=== PATIENT | male | born 1980 | race American Indian/Alaskan Native ===

== ENCOUNTER 2020-07-25 08:58 | Emergency (ER) | payer SELFPAY ==
[2020-07-25] MEDS ORDERED: dexAMETHasone 20 MG/5 ML VIAL IM ONE (09:14)
[2020-07-25] MEDS ORDERED: ALBUTEROL 2.5 MG/3 ML NEBU IH ONE (09:14)
--- NOTE | 2020-07-25 09:20 | Event Note ---
ED Screening Note Date of service: 07/25/20 Time: 09:19 ED Screening Note: 39-year-old -[place] male presents to the emergency room reporting chest pain for last night, asthma flareup for the last 3 weeks. Patient states he ran out of his inhaler yesterday. Patient reports he has been intubated but from her overdose. Has been hospitalized for asthma. Does not have a primary care provider. No known drug allergies and currently on no meds on a daily basis. He denies any fever no chills no sore throat does admit to shortness of breath chest pain and tightness. He recently stopped smoking cigarettes 4 days ago. Denies any surgeries. This initial assessment/diagnostic orders/clinical plan/treatment(s) is/are subject to change based on patients health status, clinical progression and re- assessment by fellow clinical providers in the ED. Further treatment and workup at subsequent clinical providers discretion. Patient/guardian urged not to elope from the ED as their condition may be serious if not clinically assessed and managed. Initial orders include:
[2020-07-25] MEDS ORDERED: methylPREDNISolone Sod Succinate 125 MG/2 ML INJ IV ONE (09:22)
--- NOTE | 2020-07-25 09:25 | Emergency Department Report ---
ED Chest Pain HPI - General Chief Complaint: Chest Pain Stated Complaint: CHEST PAIN, SOB Time Seen by Provider: 07/25/20 09:19 Source: patient Mode of arrival: Ambulatory Limitations: No Limitations - History of Present Illness Initial Comments: This is a 39-year-old -[place] male who presents to the emergency department with complaint of a 1 day history of some midsternal chest pain, and a 3-week history of shortness of breath that he equates with his asthma. It is associated with some wheezing and a mixed dry and productive cough. The chest pain is currently 4 out of 10 in intensity and he says that he feels it in his back as well. He denies any fever, nausea, vomiting, lower extremity swelling, diaphoresis, abdominal pain. He has not taken anything for his symptoms prior to presentation. He says that he ran out of his albuterol inhaler. He does not have a primary care physician. No recent travel, recent immobility, recent surgery, or any sick contacts at home. He says he stopped smoking cigarettes about 4 or 5 days ago. - Related Data Previous Rx's Medication Instructions Recorded Last Taken Type Albuterol Mdi (or & Nicu Only) 2 puff IH QID PRN #8.5 gram 07/25/20 Unknown Rx [ProAir HFA Inhaler] predniSONE [Deltasone] 20 mg PO BID #8 tab 07/25/20 Unknown Rx Allergies Allergy/AdvReac Type Severity Reaction Status Date / Time No Known Allergies Allergy Verified 07/25/20 09:08 Heart Score - HEART Score History: Slightly suspicious EKG: Normal Age: < 45 Risk factors: 1-2 risk factors Troponin: < normal limit HEART Score: 1 - EKG Read Time Time EKG Completed: : EKG Read Time: 09:25 - Critical Actions Critical Actions: 0-3 pts:0.9-1.7%risk of adverse cardiac event.Candidate for discharge ED Review of Systems ROS: Stated complaint: CHEST PAIN, SOB Other details as noted in HPI Comment: All other systems reviewed and negative Constitutional: denies: chills, fever Eyes: denies: eye pain, vision change ENT: denies: ear pain, throat pain Respiratory: shortness of breath, wheezing. denies: cough Cardiovascular: chest pain. denies: palpitations, edema Gastrointestinal: denies: abdominal pain, nausea, vomiting Genitourinary: denies: dysuria, discharge Musculoskeletal: back pain. denies: arthralgia Skin: denies: rash, lesions Neurological: denies: headache, weakness ED Past Medical Hx - Past Medical History Hx Asthma: Yes - Surgical History Past Surgical History?: No - Social History Smoking Status: Former Smoker Substance Use Type: None - Medications Home Medications: Home Medications Medication Instructions Recorded Confirmed Last Taken Type Albuterol Mdi (or & Nicu Only) 2 puff IH QID PRN #8.5 gram 07/25/20 Unknown Rx [ProAir HFA Inhaler] predniSONE [Deltasone] 20 mg PO BID #8 tab 07/25/20 Unknown Rx ED Physical Exam - General Limitations: No Limitations - Other Other exam information: GENERAL: The patient is well-developed well-nourished. HENT: Normocephalic. Atraumatic. Patient has moist mucous membranes. EYES: Extraocular motions are intact. NECK: Supple. Trachea is midline. CHEST/LUNGS: Moderate wheezing throughout the chest. No tachypnea or accessory muscle use. HEART/CARDIOVASCULAR: Regular. There is no tachycardia. There is no murmur. ABDOMEN: Abdomen is soft, nontender. Patient has normal bowel sounds. There is no abdominal distention. SKIN: Skin is warm and dry. NEURO: The patient is awake, alert, and oriented. The patient is cooperative. The patient has no focal neurologic deficits. Normal speech. MUSCULOSKELETAL: There is no tenderness or deformity. There is no limitation range of motion. ED Course Vital Signs 07/25/20 07/25/20 07/25/20 09:06 09:22 09:30 Pulse Rate 67 71 Pulse Rate [ Anterior Bilateral Throughout] Respiratory 22 Rate Respiratory Rate [Anterior Bilateral Throughout] Blood Pressure 148/93 O2 Sat by Pulse 93 95 94 Oximetry 07/25/20 07/25/20 07/25/20 09:39 09:46 10:00 Pulse Rate 80 71 62 Pulse Rate [ 80 Anterior Bilateral Throughout] Respiratory 13 17 Rate Respiratory 16 Rate [Anterior Bilateral Throughout] Blood Pressure 139/86 144/78 O2 Sat by Pulse 94 100 Oximetry 07/25/20 10:16 Pulse Rate 61 Pulse Rate [ Anterior Bilateral Throughout] Respiratory 12 Rate Respiratory Rate [Anterior Bilateral Throughout] Blood Pressure 130/85 O2 Sat by Pulse 98 Oximetry JHOAN score - Jhoan Score Age > 65: (0) No Aspirin use within the Past 7 Days: (0) No 3 or more CAD Risk Factors: (0) No 2 or more Angina events in past 24 hrs: (0) No Known CAD with more than 50% Stenosis: (0) No Elevated Cardiac Markers: (0) No ST Deviation Greater than 0.5mm: (0) No JHOAN Score: 0 ED Medical Decision Making - Lab Data Result diagrams: 07/25/20 10:00 07/25/20 10:00 Lab Results 07/25/20 07/25/20 Range/Units 10:00 10:00 WBC 6.6 (4.5-11.0) K/mm3 RBC 4.66 (3.65-5.03) M/mm3 Hgb 15.2 (11.8-15.2) gm/dl Hct 44.8 (35.5-45.6) % MCV 96 H (84-94) fl MCH 33 H (28-32) pg MCHC 34 (32-34) % RDW 13.6 (13.2-15.2) % Plt Count 266 (140-440) K/mm3 Lymph % (Auto) 31.4 (13.4-35.0) % Union % (Auto) 7.4 H (0.0-7.3) % Eos % (Auto) 4.9 H (0.0-4.3) % Baso % (Auto) 0.4 (0.0-1.8) % Lymph # (Auto) 2.1 (1.2-5.4) K/mm3 Union # (Auto) 0.5 (0.0-0.8) K/mm3 Eos # (Auto) 0.3 (0.0-0.4) K/mm3 Baso # (Auto) 0.0 (0.0-0.1) K/mm3 Seg Neutrophils % 55.9 (40.0-70.0) % Seg Neutrophils # 3.7 (1.8-7.7) K/mm3 Sodium 137 (137-145) mmol/L Potassium 3.9 (3.6-5.0) mmol/L Chloride 102.7 (98-107) mmol/L Carbon Dioxide 28 (22-30) mmol/L Anion Gap 10 mmol/L BUN 8 L (9-20) mg/dL Creatinine 0.9 (0.8-1.3) mg/dL Estimated GFR > 60 ml/min BUN/Creatinine Ratio 9 % Glucose 88 (75-100) mg/dL Calcium 8.7 (8.4-10.2) mg/dL Troponin T < 0.010 (0.00-0.029) ng/mL - EKG Data -: EKG Interpreted by Me EKG shows normal: sinus rhythm, axis (Left axis deviation), intervals, QRS complexes, ST-T waves Rate: normal - EKG Data When compared to previous EKG there are: previous EKG unavailable Interpretation: other (Sinus rhythm at 66 bpm, left axis deviation. No ST elevation CA.) - Radiology Data Radiology results: image reviewed interpreted by me: Chest x-ray does not show any acute process. There are no pleural effusions, obvious pneumonia and there is no pneumothorax. No significant cardiomegaly. - Medical Decision Making This patient presents to the emergency department with complaint of some shortness of breath, wheezing and coughing over the past 3 weeks and has just now developed some recent generalized chest tightness/discomfort. On examination he has moderate bronchospasm but does not appear in any respiratory or acute distress. EKG did not have any morphology consistent with ST elevation myocardial infarction. Chest x-ray does not show any pneumonia, pleural effusions, pneumothorax, or any other acute process. Patient's labs have been unremarkable including CBC, metabolic panel and a negative troponin. Patient was given an extended breathing treatment and a dose of steroids. Upon reevaluation he appears, and feels, greatly improved. He still has some expiratory wheezing but it is markedly improved. Patient is low on the heart and JHOAN score. Patient does not have any risk factors associated with thromboembolic disease and is low on the Wells score criteria and negative on the pulmonary embolism rule out criteria. For these reasons patient appears safe for discharge home at this time. His contact information has been sent over to the [facility], and someone from their office should be contacting him shortly for close outpatient follow-up as per our hospitals low risk chest pain protocol. Critical Care Time: No Critical care attestation.: If time is entered above; I have spent that time in minutes in the direct care of this critically ill patient, excluding procedure time. ED Disposition Clinical Impression: Bronchospasm, Chest tightness Asthma attack Qualifiers: Asthma severity: unspecified severity Asthma persistence: unspecified Qualified Code(s): J45.901 - Unspecified asthma with (acute) exacerbation Disposition: DC- TO HOME OR SELFCARE Is pt being admited?: No Condition: Stable Instructions: Asthma, Adult, Bronchospasm, Adult, Nonspecific Chest Pain, Adult Additional Instructions: Please follow-up with a primary care physician in the next few days. I am giving you a referral for a local primary care physician and a primary care clinic. I am sending your contact information over to the [facility], and someone from their office should be contacting you shortly for close outpatient follow-up. Please do not go back to smoking cigarettes or smoking of any kind. Return to the emergency department with any worsening of your symptoms, new or concerning symptoms not addressed during this current emergency department visit, or with any acute distress. Prescriptions: predniSONE [Deltasone] 20 mg PO BID #8 tab Albuterol Mdi (or & Nicu Only) [ProAir HFA Inhaler] 2 puff IH QID PRN #8.5 gram PRN Reason: Shortness Of Breath Referrals: KRISTEN TUCKER MD [Staff Physician] - 3-5 Days MARK AMES MD [Staff Physician] - 3-5 Days [facility] [Provider Group] - 3-5 Days Time of Disposition: 11:23
[2020-07-25] MEDS: IPRATROPIUM 0.02% NEBU 2.5 ML IH ONE (09:46)
[2020-07-25 10:25] LABS: Basophils % (Auto) 0.4 % (0.0-1.8); Eosinophils # (Auto) 0.3 K/mm3 (0.0-0.4); Eosinophils % (Auto) 4.9 % (0.0-4.3); Hematocrit 44.8 % (35.5-45.6); Hemoglobin 15.2 gm/dl (11.8-15.2); Lymphocytes # (Auto) 2.1 K/mm3 (1.2-5.4); Lymphocytes % (Auto) 31.4 % (13.4-35.0); Mean Corpuscular HGB Conc 34 % (32-34); Mean Corpuscular Volume 96 fl (84-94); Monocytes # (Auto) 0.5 K/mm3 (0.0-0.8); Monocytes % (Auto) 7.4 % (0.0-7.3); Platelet Count 266 K/mm3 (140-440); Red Blood Count 4.66 M/mm3 (3.65-5.03); Red Cell Distribution Width 13.6 % (13.2-15.2)
[2020-07-25 10:53] LABS: BUN/Creatinine Ratio 9; Blood Urea Nitrogen 8 mg/dL (9-20); Calcium 8.7 mg/dL (8.4-10.2); Hemolysis Index 3
[2020-07-25 12:13] VITALS: BP 139/73
--- NOTE | 2020-07-25 14:11 | XRay Report ---
XR chest 1V ap INDICATION / CLINICAL INFORMATION: Shortness of breath, chest pain COMPARISON: None available. FINDINGS: SUPPORT DEVICES: None. HEART / MEDIASTINUM: No significant abnormality. LUNGS / PLEURA: Lungs are clear. Costophrenic sulci are sharp. No pneumothorax. ADDITIONAL FINDINGS: No significant additional findings. IMPRESSION: 1. No acute findings. Signer Name: Leif Salazar MD Signed: 07/25/2020 9:47 AM Workstation Name: [id number]
--- NOTE | 2020-07-26 09:36 | Electrocardiograph Report ---
[facility] Test Date: 2020-07-25 Test Time: 09:35:08 Pat Name: REJI SHAW Department: Room: Gender: M Patient Navigator: BISHNU : 1980 Requested By: JOHNATHON REYES Order Number: [id number] Reading MD: Gareth Nuñez Measurements Intervals [place] Rate: 66 P: 74 IA: 154 QRS: -31 QRSD: 108 T: 59 QT: 388 QTc: 405 Interpretive Statements Sinus rhythm Left axis deviation No previous ECG available for comparison Electronically Signed On 07-26-2020 9:36:18 EDT by Gareth Nuñez
== END 2020-07-25 12:50 | disposition home or self-care (01) ==
LOC: ED 08:58
DX: J45.909 Unspecified asthma, uncomplicated (principal); Z87.891 Personal history of nicotine dependence; Z79.899 Other long term (current) drug therapy
CPT/HCPCS: 36415; 71045; 80048; 84484; 85025; 93005; 94640; 96374; 99284; J2930; 94644

== ENCOUNTER 2020-08-15 10:29 | Emergency (ER) | payer SELFPAY ==
[2020-08-15] MEDS ORDERED: ALBUTEROL 2.5 MG/3 ML NEBU IH ONE (10:56)
[2020-08-15] MEDS ORDERED: MAGNESIUM SULFATE 2 GM/50 ML BAG IV ONE (10:57)
[2020-08-15] MEDS ORDERED: IPRATROPIUM 0.02% NEBU 2.5 ML IH ONE (10:57)
--- NOTE | 2020-08-15 10:58 | Emergency Department Report ---
Minor Respiratory - HPI Chief Complaint: Dyspnea/Respdistress Stated Complaint: MAIKEL/CP Time Seen by Provider: 08/15/20 10:56 Pain Location: Chest Severity: mild Minor Respiratory: Yes Able to Tolerate Fluids, Yes Cough, Yes Shortness of Breath, No Rhinorrhea, No Sore Throat, No Ear Pain, No Sick Contacts, No Hemoptysis, No Chest Pain, No Fever Other History: Patient is a 39-year-old male that comes to the emergency room with wheezing. He is known to us. He does not follow-up because he states he does not have medical insurance. Patient denies any fever or chills. He denies any purulent cough. Patient has not been immunized for Covid. He has shortness of breath only when wheezing. ED Review of Systems ROS: Stated complaint: MAIKEL/CP Other details as noted in HPI Comment: All other systems reviewed and negative ED Past Medical Hx - Past Medical History Previous Medical History?: Yes Hx Asthma: Yes - Surgical History Past Surgical History?: No - Family History Family history: no significant - Social History Smoking Status: Former Smoker Substance Use Type: None - Medications Home Medications: Home Medications Medication Instructions Recorded Confirmed Last Taken Type ALBUTEROL NEB's [Proventil 0.083% 2.5 mg IH TID PRN #1 box 08/15/20 Unknown Rx NEBS] Albuterol Sulfate [Proair 90 mcg IH QID PRN #1 aer.[email or web address] 08/15/20 Unknown Rx Respiclick] Cetirizine HCl [ZyrTEC] 10 mg PO DAILY #30 capsule 08/15/20 Unknown Rx Fluticasone [Flonase] 1 spray NS QDAY #1 bottle 08/15/20 Unknown Rx predniSONE [Deltasone] 20 mg PO DAILY #5 tablet 08/15/20 Unknown Rx Minor Respiratory Exam - Exam General: Vital signs noted. No distress. Alert and acting appropriately. Mild right testicular swelling on exam no tenderness on palpation no discharge HEENT: Yes Moist Mucous Membranes, No Pharyngeal Erythema, No Pharyngeal Exudates, No Rhinorrhea, No Conjuctival Injection, No Frontal Tenderness, No Maxillary Tenderness Ear: Neither TM Bulge, Neither TM Erythema, Neither EAC Pain, Neither EAC Discharge Neck: Yes Supple, No Adenopathy Lungs: Yes Good Air Exchange, Yes Wheezes, No Ronchi, No Stridor, No Cough, No Labored Respirations, No Retractions, No Use of Accessory Muscles, No Other Abnormal Lung Sounds Heart: Yes Regular, No Murmur Abdomen: Yes Normal Bowel Sounds, No Tenderness, No Peritoneal Signs Skin: No Rash, No Edema Neurologic: Alert and oriented, no deficits. Musculoskeletal: Unremarkable. ED Course Vital Signs 08/15/20 10:39 Temperature 98.3 F Pulse Rate 94 H Respiratory 20 Rate Blood Pressure 142/90 [Right] O2 Sat by Pulse 93 Oximetry ED Medical Decision Making - Radiology Data Radiology results: report reviewed, image reviewed See report - Medical Decision Making X-ray noted. Patient given a DuoNeb by respiratory. Magnesium 2 g. And methylprednisolone. On reexam patient had diminished wheezing. I had a long discussion with patient regarding his lack of compliance and the risk associated with it. I have given him [facility] information as well as good Rx cards. Have also given him additional community referrals. He verbalizes understanding. He understands that he could develop asthma to the point that his airways clamped down and that requires intubation and that can result in even . On discharge patient ambulatory and nontoxic. His saturations on room air are 99 on discharge. Vital Signs 08/15/20 08/15/20 08/15/20 10:39 11:50 11:51 Temperature 98.3 F Pulse Rate 94 H Pulse Rate [ 63 95 H Bilateral Throughout] Respiratory 20 Rate Respiratory 22 22 Rate [Bilateral Throughout] Blood Pressure 142/90 [Right] O2 Sat by Pulse 93 Oximetry 08/15/20 12:20 Temperature Pulse Rate 88 Pulse Rate [ Bilateral Throughout] Respiratory Rate Respiratory Rate [Bilateral Throughout] Blood Pressure 184/104 [Right] O2 Sat by Pulse 99 Oximetry - Differential Diagnosis AE RO PNA Critical care attestation.: If time is entered above; I have spent that time in minutes in the direct care of this critically ill patient, excluding procedure time. ED Disposition Clinical Impression: Asthma, acute, Nonadherence to medical treatment Disposition: DC-01 TO HOME OR SELFCARE Is pt being admited?: No Does the pt Need Aspirin: No Condition: Stable Instructions: Asthma, Adult, Asthma (ED) Additional Instructions: Follow-up as instructed. Have given you numerous referrals below. [facility] is also good if you are underinsured. Stay well-hydrated. Medications as ordered today. Prescriptions: predniSONE [Deltasone] 20 mg PO DAILY #5 tablet Fluticasone [Flonase] 1 spray NS QDAY #1 bottle Albuterol Sulfate [Proair Respiclick] 90 mcg IH QID PRN #1 aer.pow.[email or web address] PRN Reason: Wheezing ALBUTEROL NEB's [Proventil 0.083% NEBS] 2.5 mg IH TID PRN #1 box PRN Reason: Wheezing Cetirizine HCl [ZyrTEC] 10 mg PO DAILY #30 capsule Referrals: [facility] [Outside] - 3-5 Days LYUDMILA JOSE MD [Staff Physician] - 3-5 Days Time of Disposition: 11:23
[2020-08-15] MEDS ORDERED: methylPREDNISolone Sod Succinate 125 MG/2 ML INJ IV ONE (11:02)
--- NOTE | 2020-08-15 11:22 | XRay Report ---
XR chest 1V ap INDICATION / CLINICAL INFORMATION: SOB WHEEZING COMPARISON: 07/25/2020 FINDINGS: SUPPORT DEVICES: None. HEART / MEDIASTINUM: No significant abnormality. LUNGS / PLEURA: Lungs are clear. Costophrenic sulci are sharp. No pneumothorax. ADDITIONAL FINDINGS: No significant additional findings. IMPRESSION: 1. No acute findings. Signer Name: Leif Salazar MD Signed: 08/15/2020 11:17 AM Workstation Name: [employer]
[2020-08-15 12:46] VITALS: BP 184/104
--- NOTE | 2020-08-16 12:04 | Electrocardiograph Report ---
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
== END 2020-08-15 12:20 | disposition home or self-care (01) ==
LOC: ED 10:29
DX: J45.909 Unspecified asthma, uncomplicated (principal); Z91.19 Patient's noncompliance with other medical treatment and regimen; Z87.891 Personal history of nicotine dependence; Z79.899 Other long term (current) drug therapy
CPT/HCPCS: 71045; 93005; 94640; 96365; 96375; 99283; J2930; J3475; 94644

== ENCOUNTER 2020-12-16 05:32 | Emergency (ER) | payer SELFPAY ==
[2020-12-16] MEDS ORDERED: ASPIRIN 325 MG TAB PO ONE (05:41)
[2020-12-16] MEDS ORDERED: IPRATROPIUM/ALBUTEROL SULFATE 3 ML AMPUL.NEB IH ONE (06:06)
[2020-12-16] MEDS ORDERED: methylPREDNISolone Sod Succinate 125 MG/2 ML INJ IM ONE (06:08)
[2020-12-16 07:01] LABS: Basophils # (Auto) 0.1 K/mm3 (0.0-0.1); Basophils % (Auto) 0.8 % (0.0-1.8); Eosinophils # (Auto) 0.6 K/mm3 (0.0-0.4); Eosinophils % (Auto) 6.9 % (0.0-4.3); Hematocrit 48.2 % (35.5-45.6); Lymphocytes # (Auto) 2.8 K/mm3 (1.2-5.4); Mean Corpuscular HGB Conc 33 % (32-34); Mean Corpuscular Volume 96 fl (84-94); Monocytes # (Auto) 0.7 K/mm3 (0.0-0.8); Monocytes % (Auto) 8.7 % (0.0-7.3); Platelet Count 271 K/mm3 (140-440)
[2020-12-16 07:05] LABS: Alanine Aminotransferase 30 units/L (7-56); Albumin 4.2 g/dL (3.9-5); BUN/Creatinine Ratio 7; Blood Urea Nitrogen 6 mg/dL (9-20); Calcium 8.7 mg/dL (8.4-10.2); Hemolysis Index 36
[2020-12-16] MEDS ORDERED: IPRATROPIUM 0.02% NEBU 2.5 ML IH ONE (07:34)
[2020-12-16] MEDS ORDERED: ALBUTEROL 2.5 MG/3 ML NEBU IH ONE (07:34)
--- NOTE | 2020-12-16 07:38 | XRay Report ---
CHEST 2 VIEWS INDICATION / CLINICAL INFORMATION: cp. COMPARISON: None available. FINDINGS: SUPPORT DEVICES: None. HEART / MEDIASTINUM: No significant abnormality. LUNGS / PLEURA: No significant pulmonary or pleural abnormality. No pneumothorax. ADDITIONAL FINDINGS: No significant additional findings. IMPRESSION: 1. No acute findings. Signer Name: Emmanuel Mckeon MD Signed: 12/16/2020 7:33 AM Workstation Name: [id number]
[2020-12-16 09:46] LABS: INR 1.02 (0.87-1.13)
[2020-12-16 09:47] LABS: Partial Thromboplastin Time 53.6 Sec. (24.2-36.6)
--- NOTE | 2020-12-16 10:49 | Emergency Department Report ---
ED Chest Pain HPI - General Chief Complaint: Chest Pain Stated Complaint: CHEST PAIN Time Seen by Provider: 12/16/20 07:27 Source: patient Mode of arrival: Ambulatory Limitations: No Limitations - History of Present Illness Initial Comments: This is a 39-year-old male nontoxic, well nourished in appearance, no acute signs of distress presents to the ED with c/o of chest tightness, SOB and wheezing that started today. Patient chest pains but stated has some tightness. Patient denies any upper respiratory symptoms. Patient denies any hemoptysis, fever, chills, nausea, vomiting, headache, stiff neck, numbness, tingling, abdominal pain. Patient denies pleuritic chest pain. Patient denies any recent travels or long car rides. Patient denies any recent surgeries or any sick contacts. Patient denies any drug allergies. Past medical history includes Asthma. MD Complaint: other (chest tightness, wheezing/SOB) -: days(s) Pain Radiation: none Severity: mild Consistency: constant Improves With: nothing Worsens With: nothing re: denies: nausea, vomting, diaphoresis, dyspnea, sense of impending doom Other Symptoms: denies: cough, fever, syncope, rash, acid taste in mouth, leg swelling, palpitations, burping Treatments Prior to Arrival: none Aspirin use within the Past 7 Days: (0) No - Related Data Previous Rx's Medication Instructions Recorded Last Taken Type ALBUTEROL NEB's [Proventil 0.083% 2.5 mg IH TID PRN #1 box 08/15/20 Unknown Rx NEBS] Albuterol Sulfate [Proair 90 mcg IH QID PRN #1 aer.pow.ba 08/15/20 Unknown Rx Respiclick] Cetirizine HCl [ZyrTEC] 10 mg PO DAILY #30 capsule 08/15/20 Unknown Rx Fluticasone [Flonase] 1 spray NS QDAY #1 bottle 08/15/20 Unknown Rx predniSONE [Deltasone] 20 mg PO DAILY #5 tablet 08/15/20 Unknown Rx Albuterol Mdi (or & Nicu Only) 2 puff IH QID PRN #8.5 gram 12/16/20 Unknown Rx [ProAir HFA Inhaler] Albuterol Sulfate [Albuterol 0.63% 0.63 mg IH TID PRN #1 box 12/16/20 Unknown Rx NEBS] Prednisone [predniSONE 10 mg 10 mg PO .TAPER #1 tab.ds.pk 12/16/20 Unknown Rx (6-Day Pack, 21 Tabs)] Allergies Allergy/AdvReac Type Severity Reaction Status Date / Time No Known Allergies Allergy Verified 07/25/20 09:08 Heart Score - HEART Score History: Slightly suspicious EKG: Normal Age: < 45 Risk factors: No known risk factors Troponin: < normal limit HEART Score: 0 - EKG Read Time Time EKG Completed: 06:00 EKG Read Time: 06:11 (Dr. Vargas) - Critical Actions Critical Actions: 0-3 pts:0.9-1.7%risk of adverse cardiac event.Candidate for discharge ED Review of Systems ROS: Stated complaint: CHEST PAIN Other details as noted in HPI Constitutional: denies: chills, fever Eyes: denies: eye pain, eye discharge, vision change ENT: denies: ear pain, throat pain Respiratory: shortness of breath, wheezing. denies: cough Cardiovascular: denies: chest pain, palpitations, dyspnea on exertion, orthopnea, edema, syncope, paroxysmal nocturnal dyspnea Endocrine: no symptoms reported Gastrointestinal: denies: abdominal pain, nausea, diarrhea Genitourinary: denies: urgency, dysuria Musculoskeletal: denies: back pain, joint swelling, arthralgia Skin: denies: rash, lesions Neurological: denies: headache, weakness, paresthesias Psychiatric: denies: anxiety, depression Hematological/Lymphatic: denies: easy bleeding, easy bruising ED Past Medical Hx - Past Medical History Previous Medical History?: Yes Hx Asthma: Yes - Surgical History Past Surgical History?: No - Social History Smoking Status: Former Smoker Substance Use Type: None - Medications Home Medications: Home Medications Medication Instructions Recorded Confirmed Last Taken Type ALBUTEROL NEB's [Proventil 0.083% 2.5 mg IH TID PRN #1 box 08/15/20 Unknown Rx NEBS] Albuterol Sulfate [Proair 90 mcg IH QID PRN #1 aer.pow.ba 08/15/20 Unknown Rx Respiclick] Cetirizine HCl [ZyrTEC] 10 mg PO DAILY #30 capsule 08/15/20 Unknown Rx Fluticasone [Flonase] 1 spray NS QDAY #1 bottle 08/15/20 Unknown Rx predniSONE [Deltasone] 20 mg PO DAILY #5 tablet 08/15/20 Unknown Rx Albuterol Mdi (or & Nicu Only) 2 puff IH QID PRN #8.5 gram 12/16/20 Unknown Rx [ProAir HFA Inhaler] Albuterol Sulfate [Albuterol 0.63% 0.63 mg IH TID PRN #1 box 12/16/20 Unknown Rx NEBS] Prednisone [predniSONE 10 mg 10 mg PO .TAPER #1 tab.ds.pk 12/16/20 Unknown Rx (6-Day Pack, 21 Tabs)] ED Physical Exam - General Limitations: No Limitations General appearance: alert, in no apparent distress - Head Head exam: Present: atraumatic, normocephalic - Eye Eye exam: Present: normal appearance - Neck Neck exam: Present: normal inspection, full ROM. Absent: lymphadenopathy - Respiratory Respiratory exam: Present: wheezes (bilateral expiratory wheezing). Absent: respiratory distress, rales, rhonchi, stridor, chest wall tenderness, accessory muscle use, decreased breath sounds, prolonged expiratory - Cardiovascular Cardiovascular Exam: Present: regular rate, normal rhythm, normal heart sounds. Absent: bradycardia, tachycardia, irregular rhythm, systolic murmur, diastolic murmur, rubs, gallop - GI/Abdominal GI/Abdominal exam: Present: soft, normal bowel sounds. Absent: distended, tende rness, guarding, rebound, rigid, diminished bowel sounds - Extremities Exam Extremities exam: Present: normal inspection, full ROM - Back Exam Back exam: Present: normal inspection, full ROM. Absent: tenderness, CVA tende rness (R), CVA tenderness (L), muscle spasm, paraspinal tenderness, vertebral tenderness, rash noted - Neurological Exam Neurological exam: Present: alert, oriented X3, normal gait - Psychiatric Psychiatric exam: Present: normal affect, normal mood - Skin Skin exam: Present: warm, dry, intact, normal color. Absent: rash ED Course Vital Signs 12/16/20 12/16/20 12/16/20 05:39 10:26 11:22 Temperature 98.0 F Pulse Rate 70 85 85 Respiratory 19 18 18 Rate Blood Pressure 135/93 135/65 130/85 [Right] O2 Sat by Pulse 94 95 96 Oximetry - Reevaluation(s) Reevaluation #1: 12/16/20 10:49 Patient is speaking in full sentences with no signs of distress noted. Reevaluation #2: 12/16/20 10:49 Posttreatment and there is no wheezing upon auscultation. ROBERT score - Robert Score Age > 65: (0) No Aspirin use within the Past 7 Days: (0) No 3 or more CAD Risk Factors: (0) No 2 or more Angina events in past 24 hrs: (0) No Known CAD with more than 50% Stenosis: (0) No Elevated Cardiac Markers: (0) No ST Deviation Greater than 0.5mm: (0) No ROBERT Score: 0 ED Medical Decision Making - Lab Data Result diagrams: 12/16/20 06:33 12/16/20 06:33 Lab Results 12/16/20 12/16/20 12/16/20 Range/Units 06:33 06:33 07:45 WBC 8.1 (4.5-11.0) K/mm3 RBC 5.00 (3.65-5.03) M/mm3 Hgb 16.0 H (11.8-15.2) gm/dl Hct 48.2 H (35.5-45.6) % MCV 96 H (84-94) fl MCH 32 (28-32) pg MCHC 33 (32-34) % RDW 14.0 (13.2-15.2) % Plt Count 271 (140-440) K/mm3 Lymph % (Auto) 35.0 (13.4-35.0) % [place] % (Auto) 8.7 H (0.0-7.3) % Eos % (Auto) 6.9 H (0.0-4.3) % Baso % (Auto) 0.8 (0.0-1.8) % Lymph # (Auto) 2.8 (1.2-5.4) K/mm3 [place] # (Auto) 0.7 (0.0-0.8) K/mm3 Eos # (Auto) 0.6 H (0.0-0.4) K/mm3 Baso # (Auto) 0.1 (0.0-0.1) K/mm3 Seg Neutrophils % 48.6 (40.0-70.0) % Seg Neutrophils # 3.9 (1.8-7.7) K/mm3 PT 13.9 (12.2-14.9) Sec. INR 1.02 (0.87-1.13) APTT 53.6 H (24.2-36.6) Sec. Sodium 138 (137-145) mmol/L Potassium 4.3 (3.6-5.0) mmol/L Chloride 104.1 (98-107) mmol/L Carbon Dioxide 25 (22-30) mmol/L Anion Gap 13 mmol/L BUN 6 L (9-20) mg/dL Creatinine 0.9 (0.8-1.3) mg/dL Estimated GFR > 60 ml/min BUN/Creatinine Ratio 7 % Glucose 109 H (75-100) mg/dL Calcium 8.7 (8.4-10.2) mg/dL Magnesium (1.7-2.3) mg/dL Total Bilirubin 0.40 (0.1-1.2) mg/dL AST 22 (5-40) units/L ALT 30 (7-56) units/L Alkaline Phosphatase 64 (35-129) units/L Troponin T < 0.010 (0.00-0.029) ng/mL Total Protein 7.3 (6.3-8.2) g/dL Albumin 4.2 (3.9-5) g/dL Albumin/Globulin Ratio 1.4 % 12/16/20 12/16/20 Range/Units 07:45 09:59 WBC (4.5-11.0) K/mm3 RBC (3.65-5.03) M/mm3 Hgb (11.8-15.2) gm/dl Hct (35.5-45.6) % MCV (84-94) fl MCH (28-32) pg MCHC (32-34) % RDW (13.2-15.2) % Plt Count (140-440) K/mm3 Lymph % (Auto) (13.4-35.0) % [place] % (Auto) (0.0-7.3) % Eos % (Auto) (0.0-4.3) % Baso % (Auto) (0.0-1.8) % Lymph # (Auto) (1.2-5.4) K/mm3 [place] # (Auto) (0.0-0.8) K/mm3 Eos # (Auto) (0.0-0.4) K/mm3 Baso # (Auto) (0.0-0.1) K/mm3 Seg Neutrophils % (40.0-70.0) % Seg Neutrophils # (1.8-7.7) K/mm3 PT (12.2-14.9) Sec. INR (0.87-1.13) APTT (24.2-36.6) Sec. Sodium (137-145) mmol/L Potassium (3.6-5.0) mmol/L Chloride (98-107) mmol/L Carbon Dioxide (22-30) mmol/L Anion Gap mmol/L BUN (9-20) mg/dL Creatinine (0.8-1.3) mg/dL Estimated GFR ml/min BUN/Creatinine Ratio % Glucose (75-100) mg/dL Calcium (8.4-10.2) mg/dL Magnesium 2.10 (1.7-2.3) mg/dL Total Bilirubin (0.1-1.2) mg/dL AST (5-40) units/L ALT (7-56) units/L Alkaline Phosphatase (35-129) units/L Troponin T < 0.010 (0.00-0.029) ng/mL Total Protein (6.3-8.2) g/dL Albumin (3.9-5) g/dL Albumin/Globulin Ratio % - EKG Data 12/16/20 10:49 Normal sinus rhythm at 60 bpm. No STEMI. Reviewed and signed by . - Radiology Data [facility] [address] [place] [address] XRay Report Signed Patient: REJI SHAW MR#: [id number] : 1980 Acct:[id number] Age/Sex: 39 / M ADM Date: 12/16/20 Loc: ED Attending Dr: Ordering Physician: JOSIE VARGAS MD Date of Service: 12/16/20 Procedure(s): XR chest routine 2V Accession Number(s): [id number] cc: CARMELO VARGAS MD Fluoro Time In Minutes: CHEST 2 VIEWS INDICATION / CLINICAL INFORMATION: cp. COMPARISON: None available. FINDINGS: SUPPORT DEVICES: None. HEART / MEDIASTINUM: No significant abnormality. LUNGS / PLEURA: No significant pulmonary or pleural abnormality. No pneumothorax. ADDITIONAL FINDINGS: No significant additional findings. IMPRESSION: 1. No acute findings. Signer Name: Emmanuel Mckeon MD Signed: 12/16/2020 7:33 AM Workstation Name: [id number] Transcribed By: LIVE Dictated By: STEPHANIE MCKEON MD Electronically Authenticated By: STEPHANIE MCKEON MD Signed Date/Time: 12/16/20732 DD/ 2 TD/TT: - Medical Decision Making This is a 39-year-old male that presents with asthma excerbation. Patient is stable and was examined by me. ROBERT and HEART score 0 pints. PERC score for DVT/SVT/PE 0 points. EKG normal sinus rhythm with no significant changes in ST. Chest xray dictated by the radiologist. PAtient is notified of the Xray report with no questions noted. Labs within normal limits. Negative troponin x2. Pat ient received treatment in the ED which stated symptoms are improving subsided. Posttreatment and there is no wheezing upon auscultation. Patient is discharged with albuterol and prednisone. Patient was instructed to Follow-up with a primary care/studio hand doctor in 2 days or if symptoms worsen and continue return to emergency room as soon as possible. At time of discharge, the patient does not seem toxic or ill in appearance. No acute signs of distress noted. Patient agrees to discharge treatment plan of care. No further questions noted by the patient. This chart is dictated with using [employer] Critical care attestation.: If time is entered above; I have spent that time in minutes in the direct care of this critically ill patient, excluding procedure time. ED Disposition Clinical Impression: Chest pain, unspecified Qualifiers: Chest pain type: unspecified Qualified Code(s): R07.9 - Chest pain, unspecified Asthma exacerbation Qualifiers: Asthma severity: mild Asthma persistence: intermittent Qualified Code(s): J45.21 - Mild intermittent asthma with (acute) exacerbation Disposition: 01 HOME / SELF CARE / HOMELESS Is pt being admited?: No Does the pt Need Aspirin: No Condition: Stable Instructions: Asthma, Adult, Nonspecific Chest Pain, Adult Additional Instructions: Follow-up with a primary care/studio hand doctor in 2 days or if symptoms worsen and continue return to emergency room as soon as possible. Prescriptions: Albuterol Sulfate [Albuterol 0.63% NEBS] 0.63 mg IH TID PRN #1 box PRN Reason: Wheezing Prednisone [predniSONE 10 mg (6-Day Pack, 21 Tabs)] 10 mg PO .TAPER #1 tab.ds.pk Albuterol Mdi (or & Nicu Only) [ProAir HFA Inhaler] 2 puff IH QID PRN #8.5 gram PRN Reason: Shortness Of Breath Referrals: PRIMARY CAREMD [Primary Care Provider] - 3-5 Days LYUDMILA JOSE MD [Staff Physician] - 3-5 Days Forms: Work/School Release Form(ED) Time of Disposition: 11:16
[2020-12-16 11:23] VITALS: BP 130/85
--- NOTE | 2020-12-17 09:46 | Electrocardiograph Report ---
[facility] Test Date: 2020-12-16 Test Time: 06:00:03 Pat Name: REJI SHAW Department: Room: Gender: M [employer]: HILARIO : 1980 Requested By: JOSIE VARGAS Order Number: [id number] Reading MD: Gareth Nuñez Measurements Intervals [place] Rate: 60 P: 74 NC: 169 QRS: -41 QRSD: 107 T: 55 QT: 399 QTc: 399 Interpretive Statements Sinus rhythm Left axis deviation ST elevation, consider inferior injury Compared to ECG 08/15/2020 10:47:51 Left-axis deviation now present ST (T wave) deviation now present Myocardial infarct finding now present Electronically Signed On 12-17-2020 9:45:57 EDT by Gareth Nuñez
== END 2020-12-16 11:24 | disposition home or self-care (01) ==
LOC: ED 05:32
DX: J45.901 Unspecified asthma with (acute) exacerbation (principal); Z87.891 Personal history of nicotine dependence; Z79.899 Other long term (current) drug therapy
CPT/HCPCS: 36415; 71046; 80053; 83735; 84484; 85025; 85610; 85730; 93005; 94640; 96372; 99284; J2930; 94644

== ENCOUNTER 2020-12-21 05:39 | Observation (INO) | payer SELFPAY ==
--- NOTE | 2020-12-21 05:49 | Event Note ---
ED Screening Note Date of service: 12/21/20 Time: 05:47 ED Screening Note: Patient is a 40-year-old male presents emergency room with EMS for shortness of breath and status asthmaticus. Patient presented with EMS on BiPAP. Patient was diaphoretic and increased work of breathing respiratory distress and hypoxic and the patient was placed on BiPAP and given multiple medications the patient respiratory status improved. Patient was given Solu-Medrol, epi, mag, albuterol. I examined the patient. Patient not in respiratory distress. Patient has wheezing throughout. Patient is currently on BiPAP. Patient CV exam shows a normal S1-S2. Patient abdominal exam is negative. Patient is oriented x3. This initial assessment/diagnostic orders/clinical plan/treatment(s) is/are subject to change based on patients health status, clinical progression and re- assessment by fellow clinical providers in the ED. Further treatment and workup at subsequent clinical providers discretion. Patient/guardian urged not to elope from the ED as their condition may be serious if not clinically assessed and managed. Initial orders include: CBC, chemistry, chest x-ray,
[2020-12-21] MEDS ORDERED: IPRATROPIUM/ALBUTEROL SULFATE 3 ML AMPUL.NEB IH ONE ×2 (05:50)
[2020-12-21 06:17] LABS: Basophils # (Auto) 0.1 K/mm3 (0.0-0.1); Basophils % (Auto) 0.6 % (0.0-1.8); Eosinophils # (Auto) 0.2 K/mm3 (0.0-0.4); Eosinophils % (Auto) 2.2 % (0.0-4.3); Hematocrit 45.3 % (35.5-45.6); Hemoglobin 15.2 gm/dl (11.8-15.2); Lymphocytes # (Auto) 1.7 K/mm3 (1.2-5.4); Lymphocytes % (Auto) 16.8 % (13.4-35.0); Mean Corpuscular HGB Conc 34 % (32-34); Mean Corpuscular Volume 96 fl (84-94); Monocytes # (Auto) 0.5 K/mm3 (0.0-0.8); Platelet Count 299 K/mm3 (140-440); Red Blood Count 4.72 M/mm3 (3.65-5.03)
[2020-12-21] MEDS ORDERED: ALBUTEROL 2.5 MG/3 ML NEBU IH ONE ×2 (06:18→06:19)
[2020-12-21] MEDS ORDERED: IPRATROPIUM 0.02% NEBU 2.5 ML IH ONE ×2 (06:18→06:19)
--- NOTE | 2020-12-21 06:30 | XRay Report ---
CHEST 1 VIEW 12/21/2020 5:19 AM INDICATION / CLINICAL INFORMATION: Dyspnea. COMPARISON: None available. FINDINGS: SUPPORT DEVICES: None. HEART / MEDIASTINUM: No significant abnormality. LUNGS / PLEURA: No significant pulmonary or pleural abnormality. No pneumothorax. ADDITIONAL FINDINGS: No significant additional findings. IMPRESSION: 1. No acute findings. Signer Name: Emmanuel Mckeon MD Signed: 12/21/2020 6:25 AM Workstation Name: [id number]
[2020-12-21 06:41] LABS: Alanine Aminotransferase 18 units/L (7-56); Albumin 4.2 g/dL (3.9-5); BUN/Creatinine Ratio 10; Blood Urea Nitrogen 9 mg/dL (9-20); Calcium 8.6 mg/dL (8.4-10.2); Hemolysis Index 4
--- NOTE | 2020-12-21 06:47 | Emergency Department Report ---
ED Shortness of Breath HPI - General Chief Complaint: Dyspnea/Respdistress Stated Complaint: RESP DISTRESS Time Seen by Provider: 12/21/20 06:04 Source: EMS Mode of arrival: Stretcher Limitations: No Limitations - History of Present Illness Initial Comments: 40-year-old male with a past medical history of asthma with history of 1 intubation presents to the hospital complaints of wheezing shortness of breath x1 day. Patient took 7 home nebulizer treatments without improvement. Patient was found to be hypoxic with a room air saturation 88% upon EMS arrival. He was treated with CPAP, supplemental oxygen, albuterol, IV magnesium, and IV Solu-Medrol with some improvement. Patient reports he is feeling better however, has persistent wheezing and therefore was placed on BiPAP upon ED arrival. Patient was here December 16 and treated for acute asthma exacerbation. Patient has not yet filled his prescribed prednisone prescription. He was planning on refilling it today. Patient denies cough, fever, and has not been immunized for Covid. Patient complains of chest tightness secondary to wheezing. No pleuritic pain reported. - Related Data Previous Rx's Medication Instructions Recorded Last Taken Type ALBUTEROL NEB's [Proventil 0.083% 2.5 mg IH TID PRN #1 box 08/15/20 Unknown Rx NEBS] Albuterol Sulfate [Proair 90 mcg IH QID PRN #1 aer.pow.ba 08/15/20 Unknown Rx Respiclick] Cetirizine HCl [ZyrTEC] 10 mg PO DAILY #30 capsule 08/15/20 Unknown Rx Fluticasone [Flonase] 1 spray NS QDAY #1 bottle 08/15/20 Unknown Rx predniSONE [Deltasone] 20 mg PO DAILY #5 tablet 08/15/20 Unknown Rx Albuterol Mdi (or & Nicu Only) 2 puff IH QID PRN #8.5 gram 12/16/20 Unknown Rx [ProAir HFA Inhaler] Albuterol Sulfate [Albuterol 0.63% 0.63 mg IH TID PRN #1 box 12/16/20 Unknown Rx NEBS] Prednisone [predniSONE 10 mg 10 mg PO .TAPER #1 tab.ds.pk 12/16/20 Unknown Rx (6-Day Pack, 21 Tabs)] Allergies Allergy/AdvReac Type Severity Reaction Status Date / Time No Known Allergies Allergy Verified 12/21/20 05:54 ED Review of Systems ROS: Stated complaint: RESP DISTRESS Other details as noted in HPI Comment: All other systems reviewed and negative ED Past Medical Hx - Past Medical History Hx Asthma: Yes - Social History Smoking Status: Former Smoker Substance Use Type: None - Medications Home Medications: Home Medications Medication Instructions Recorded Confirmed Last Taken Type ALBUTEROL NEB's [Proventil 0.083% 2.5 mg IH TID PRN #1 box 08/15/20 Unknown Rx NEBS] Albuterol Sulfate [Proair 90 mcg IH QID PRN #1 aer.pow.ba 08/15/20 Unknown Rx Respiclick] Cetirizine HCl [ZyrTEC] 10 mg PO DAILY #30 capsule 08/15/20 Unknown Rx Fluticasone [Flonase] 1 spray NS QDAY #1 bottle 08/15/20 Unknown Rx predniSONE [Deltasone] 20 mg PO DAILY #5 tablet 08/15/20 Unknown Rx Albuterol Mdi (or & Nicu Only) 2 puff IH QID PRN #8.5 gram 12/16/20 Unknown Rx [ProAir HFA Inhaler] Albuterol Sulfate [Albuterol 0.63% 0.63 mg IH TID PRN #1 box 12/16/20 Unknown R x NEBS] Prednisone [predniSONE 10 mg 10 mg PO .TAPER #1 tab.ds.pk 12/16/20 Unknown Rx (6-Day Pack, 21 Tabs)] ED Physical Exam - General Limitations: No Limitations - Other Other exam information: General: No acute distress Head: Atraumatic Eyes: normal appearance ENT: Moist mucous membranes Neck: Normal appearance, no midline tenderness Chest: Currently on BiPAP, bilateral expiratory wheezing, no accessory muscle use CV: Regular rate and rhythm Abdomen: Soft, normal bowel sounds, nontender, nondistended, no rebound or guarding Back: Normal inspection Extremity: Normal inspection, full range of motion, no calf tenderness or leg edema Neuro: Alert O x 3, no facial asymmetry, speech clear, no gross motor sensory deficit Psych: Appropriate behavior Skin: No rash ED Course Vital Signs 12/21/20 12/21/20 12/21/20 03:44 03:46 05:55 Temperature Pulse Rate 91 H Respiratory 116 H 101 H 23 Rate Blood Pressure 151/83 Blood Pressure [Right] O2 Sat by Pulse 67 L 64 L 100 Oximetry 12/21/20 12/21/20 12/21/20 05:57 06:00 06:01 Temperature 98.1 F Pulse Rate 84 92 H Respiratory 20 21 Rate Blood Pressure Blood Pressure 151/83 [Right] O2 Sat by Pulse 100 99 98 Oximetry 12/21/20 12/21/20 12/21/20 06:16 06:30 06:46 Temperature Pulse Rate 90 83 95 H Respiratory 14 19 15 Rate Blood Pressure 128/79 138/80 140/75 Blood Pressure [Right] O2 Sat by Pulse 98 98 98 Oximetry 12/21/20 12/21/20 07:33 07:36 Temperature 97.7 F Pulse Rate 74 Respiratory 16 Rate Blood Pressure Blood Pressure 118/71 [Right] O2 Sat by Pulse 98 Oximetry ED Medical Decision Making - Lab Data Result diagrams: 12/21/20 06:01 12/21/20 06:01 Lab Results 12/21/20 12/21/20 Range/Units 06:01 06:01 WBC 10.1 (4.5-11.0) K/mm3 RBC 4.72 (3.65-5.03) M/mm3 Hgb 15.2 (11.8-15.2) gm/dl Hct 45.3 (35.5-45.6) % MCV 96 H (84-94) fl MCH 32 (28-32) pg MCHC 34 (32-34) % RDW 14.0 (13.2-15.2) % Plt Count 299 (140-440) K/mm3 Lymph % (Auto) 16.8 (13.4-35.0) % [place] % (Auto) 5.0 (0.0-7.3) % Eos % (Auto) 2.2 (0.0-4.3) % Baso % (Auto) 0.6 (0.0-1.8) % Lymph # (Auto) 1.7 (1.2-5.4) K/mm3 [place] # (Auto) 0.5 (0.0-0.8) K/mm3 Eos # (Auto) 0.2 (0.0-0.4) K/mm3 Baso # (Auto) 0.1 (0.0-0.1) K/mm3 Seg Neutrophils % 75.4 H (40.0-70.0) % Seg Neutrophils # 7.6 (1.8-7.7) K/mm3 Sodium 141 (137-145) mmol/L Potassium 4.3 (3.6-5.0) mmol/L Chloride 106.8 (98-107) mmol/L Carbon Dioxide 29 (22-30) mmol/L Anion Gap 10 mmol/L BUN 9 (9-20) mg/dL Creatinine 0.9 (0.8-1.3) mg/dL Estimated GFR > 60 ml/min BUN/Creatinine Ratio 10 % Glucose 110 H (75-100) mg/dL Calcium 8.6 (8.4-10.2) mg/dL Total Bilirubin 1.10 (0.1-1.2) mg/dL AST 15 (5-40) units/L ALT 18 (7-56) units/L Alkaline Phosphatase 64 (35-129) units/L Total Protein 7.3 (6.3-8.2) g/dL Albumin 4.2 (3.9-5) g/dL Albumin/Globulin Ratio 1.4 % - EKG Data -: EKG Interpreted by Nc EKG shows normal: sinus rhythm, ST-T waves (No STEMI) Rate: normal (98) - Radiology Data Radiology results: report reviewed CHEST 1 VIEW 12/21/2020 5:19 AM INDICATION / CLINICAL INFORMATION: Dyspnea. COMPARISON: None available. FINDINGS: SUPPORT DEVICES: None. HEART / MEDIASTINUM: No significant abnormality. LUNGS / PLEURA: No significant pulmonary or pleural abnormality. No pneumothorax. ADDITIONAL FINDINGS: No significant additional findings. IMPRESSION: 1. No acute findings. - Medical Decision Making 40-year-old male presents to the hospital status asthmaticus with hypoxia requi ring BiPAP support and supplemental oxygenation. Patient required hour continuous nebs in addition to BiPAP support. No infiltrate on x-ray. Labs unremarkable. Patient requires admission to the hospital for status asthmaticus Critical Care Time: Yes Critical care time in (mins) excluding proc time.: 35 Critical care attestation.: If time is entered above; I have spent that time in minutes in the direct care of this critically ill patient, excluding procedure time. ED Disposition Clinical Impression: Acute asthma exacerbation, Respiratory failure, Status asthmaticus Disposition: 07 LEFT AGAINST MEDICAL ADVICE Is pt being admited?: Yes Condition: Stable Time of Disposition: 08:13 (Dr Escobar/hosptialist)
[2020-12-21 07:34] VITALS: BP 118/71
[2020-12-21] MEDS ORDERED: BUDESONIDE 0.5 MG/2 ML NEBU IH SCH (08:45)
--- NOTE | 2020-12-21 08:53 | History and Physical Report ---
<BJ MORIN - Last Filed: 12/21/20 16:22> History of Present Illness Date of examination: 12/21/20 Date of admission: 12/21/20 Chief complaint: SOB and wheezing History of present illness: This is a 40-year-old AA male with a past medical history of asthma, tobacco use, and prior intubation presenting in the ED with complaints of wheezing and shortness of breath x1 day. Per Patient he recently came to the ED on 12/16/2020 for acute asthma exacerbation was discharge with some prescriptions but was unable to get them filled due to financial issues. Patient went on to report that he has a history of intubation from 5 years ago due overdose. Per patient he has been asthmatic all his life, it has been well controlled until yesterday when he got home from work, he took 7 home nebulizer treatments with no improvement. EMS was called, Patient was found diaphoretic with increased work of breathing, hypoxic SPO2 at 88% on RA, patient was placed on CPAP and treated with supplemental oxygen, albuterol, IV magnesium, and IV Solu-Medrol with some improvement then transported to [facility] for further evaluation and care. Upon his arrival to the ED patient was still wheezing and therefore was placed on Bipap and received Solu-Medrol, epi, mag, albuterol. Hospital medicine was contacted for care management. Patient seen and evaluated in the emergency department. Patient is fully Alert and oriented, On the Bipap, SPO2 at 100%, wheezing was a uscultated throughout his lung but no signs of any acute distress noted. Patient denies any chest pain, cough, fever, nor chills. Patient stated that he recently quit smoking and denied any alcohol abuse. As of noted, patient is unvaccinated for COVID and stated that he is not interested in receiving the vaccine at this time. Labs and imaging studies reviewed. Patient is being admitted for ERIKA to Med/Surg/Tele for further management. Past History Past Medical History: other (Asthma) Past Surgical History: No surgical history Social history: lives with family, smoking (Per Patient recently quit), full code. denies: IV drug use Family history: no significant family history Medications and Allergies Allergies Allergy/AdvReac Type Severity Reaction Status Date / Time No Known Allergies Allergy Verified 12/21/20 05:54 Home Medications Medication Instructions Recorded Confirmed Last Taken Type ALBUTEROL NEB's [Proventil 0.083% 2.5 mg IH TID PRN #1 box 08/15/20 Unknown Rx NEBS] Albuterol Sulfate [Proair 90 mcg IH QID PRN #1 aer.pow.ba 08/15/20 Unknown Rx Respiclick] Cetirizine HCl [ZyrTEC] 10 mg PO DAILY #30 capsule 08/15/20 Unknown Rx Fluticasone [Flonase] 1 spray NS QDAY #1 bottle 08/15/20 Unknown Rx predniSONE [Deltasone] 20 mg PO DAILY #5 tablet 08/15/20 Unknown Rx Albuterol Mdi (or & Nicu Only) 2 puff IH QID PRN #8.5 gram 12/16/20 Unknown Rx [ProAir HFA Inhaler] Albuterol Sulfate [Albuterol 0.63% 0.63 mg IH TID PRN #1 box 12/16/20 Unknown Rx NEBS] Prednisone [predniSONE 10 mg 10 mg PO .TAPER #1 tab.ds.pk 12/16/20 Unknown Rx (6-Day Pack, 21 Tabs)] Active Meds: Active Medications Acetaminophen (Acetaminophen 325 Mg Tab) 650 mg PO Q4H PRN PRN Reason: Pain MILD(1-3)/Fever >100.5/TURNER Albuterol (Albuterol 2.5 Mg/3 Ml Nebu) 2.5 mg IH Q4HRT PRN PRN Reason: Shortness Of Breath Albuterol/Ipratropium (Ipratropium/Albuterol Sulfate 3 Ml Ampul.Neb) 1 ampul IH Q6HRT LISA Budesonide (Budesonide 0.5 Mg/2 Ml Nebu) 0.5 mg IH Q12HRT LISA Heparin Sodium (Porcine) (Heparin 5,000 Unit/1 Ml Vial) 5,000 unit SUB-Q Q8HR LISA Magnesium Sulfate (Magnesium Sulfate 2gm/50ml) 2 gm in 50 mls @ 25 mls/hr IV ONCE ONE Stop: 12/21/20 10:47 Methylprednisolone Sodium Succinate (Methylprednisolone Sod Succinate 125 Mg/2 Ml Inj) 60 mg IV Q8HR LISA Naloxone HCl (Naloxone 0.4 Mg/1 Ml Inj) 0.1 mg IV Q2MIN PRN PRN Reason: Res Rate </= 8 or 02 SAT < 92% Ondansetron HCl (Ondansetron 4 Mg/2 Ml Inj) 4 mg IV Q8H PRN PRN Reason: Nausea And Vomiting Oxycodone/Acetaminophen (Oxycodone /Acetaminophen 5-325mg Tab) 1 tab PO Q6H PRN PRN Reason: Pain, Moderate (4-6) Sodium Chloride (Sodium Chloride 0.9% 10 Ml Flush Syringe) 10 ml IV BID LISA Sodium Chloride (Sodium Chloride 0.9% 10 Ml Flush Syringe) 10 ml IV PRN PRN PRN Reason: LINE FLUSH Review of Systems All systems: negative Constitutional: no weight loss, no fever, no chills Cardiovascular: shortness of breath, no chest pain Respiratory: shortness of breath, wheezing, no cough Gastrointestinal: no nausea, no vomiting Exam - Constitutional Vitals: Temp Pulse Resp BP Pulse Ox 97.7 F 74 16 118/71 98 12/21/20 07:36 12/21/20 07:33 12/21/20 07:33 12/21/20 07:33 12/21/20 07:33 General appearance: Present: no acute distress, obese - EENT Eyes: Present: PERRL, EOM intact ENT: hearing intact - Neck Neck: Present: supple, normal ROM - Respiratory Respiratory effort: normal Respiratory: bilateral: wheezing - Cardiovascular Rhythm: regular Heart Sounds: Present: S1 & S2. Absent: systolic murmur, diastolic murmur - Extremities Extremities: no ischemia, pulses intact, pulses symmetrical, No edema, normal temperature, Full ROM Peripheral Pulses: within normal limits - Abdominal General gastrointestinal: Present: soft, non-tender, non-distended, normal bowel sounds - Integumentary Integumentary: Present: warm - Musculoskeletal Musculoskeletal: strength equal bilaterally - Psychiatric Psychiatric: appropriate mood/affect, intact judgment & insight - Neurologic Neurologic: CNII-XII intact, no focal deficits, moves all extremities, gait normal - Allied Health Allied health notes reviewed: nursing Results - Labs CBC & Chem 7: 12/21/20 06:01 12/21/20 06:01 Labs: Laboratory Last Values WBC 10.1 K/mm3 (4.5-11.0) 12/21/20 06:01 RBC 4.72 M/mm3 (3.65-5.03) 12/21/20 06:01 Hgb 15.2 gm/dl (11.8-15.2) 12/21/20 06:01 Hct 45.3 % (35.5-45.6) 12/21/20 06:01 MCV 96 fl (84-94) H 12/21/20 06:01 MCH 32 pg (28-32) 12/21/20 06:01 MCHC 34 % (32-34) 12/21/20 06:01 RDW 14.0 % (13.2-15.2) 12/21/20 06:01 Plt Count 299 K/mm3 (140-440) 12/21/20 06:01 Lymph % (Auto) 16.8 % (13.4-35.0) 12/21/20 06:01 [place] % (Auto) 5.0 % (0.0-7.3) 12/21/20 06:01 Eos % (Auto) 2.2 % (0.0-4.3) 12/21/20 06:01 Baso % (Auto) 0.6 % (0.0-1.8) 12/21/20 06:01 Lymph # (Auto) 1.7 K/mm3 (1.2-5.4) 12/21/20 06:01 [place] # (Auto) 0.5 K/mm3 (0.0-0.8) 12/21/20 06:01 Eos # (Auto) 0.2 K/mm3 (0.0-0.4) 12/21/20 06:01 Baso # (Auto) 0.1 K/mm3 (0.0-0.1) 12/21/20 06:01 Seg Neutrophils % 75.4 % (40.0-70.0) H 12/21/20 06:01 Seg Neutrophils # 7.6 K/mm3 (1.8-7.7) 12/21/20 06:01 Sodium 141 mmol/L (137-145) 12/21/20 06:01 Potassium 4.3 mmol/L (3.6-5.0) 12/21/20 06:01 Chloride 106.8 mmol/L (98-107) 12/21/20 06:01 Carbon Dioxide 29 mmol/L (22-30) 12/21/20 06:01 Anion Gap 10 mmol/L 12/21/20 06:01 BUN 9 mg/dL (9-20) 12/21/20 06:01 Creatinine 0.9 mg/dL (0.8-1.3) 12/21/20 06:01 Estimated GFR > 60 ml/min 12/21/20 06:01 BUN/Creatinine Ratio 10 % 12/21/20 06:01 Glucose 110 mg/dL (75-100) H 12/21/20 06:01 Calcium 8.6 mg/dL (8.4-10.2) 12/21/20 06:01 Total Bilirubin 1.10 mg/dL (0.1-1.2) 12/21/20 06:01 AST 15 units/L (5-40) 12/21/20 06:01 ALT 18 units/L (7-56) 12/21/20 06:01 Alkaline Phosphatase 64 units/L (35-129) 12/21/20 06:01 Total Protein 7.3 g/dL (6.3-8.2) 12/21/20 06:01 Albumin 4.2 g/dL (3.9-5) 12/21/20 06:01 Albumin/Globulin Ratio 1.4 % 12/21/20 06:01 Assessment and Plan Assessment and plan: This is a 40-year-old AA male with a past medical history of asthma, tobacco use, and prior intubation presenting in the ED with complaints of wheezing and shortness of breath x1 day. Per Patient he recently came to the ED on 12/16/2020 for acute asthma exacerbation was discharge with some prescriptions but was unable to get them filled due to financial issues. Upon his arrival to the ED patient was still wheezing and therefore was placed on Bipap and received Solu- Medrol, epi, mag, albuterol. Chest Xray with no active findings. Hospital medicine was contacted for care management. *Acute Asthma Exacerbation - Admit ERIKA, Supplemental Oxygen, Duoneb Q6hrs, Budenoside Q12hrs, Solumedrol Q8hrs, PRN Albuterol Q4hrs for SOB - Pulmonary consult *Acute Hypoxic Respiratory Failure - Continue Bipap and supplemental Oxygen - ABG pending, Coronavirus PCR pending, Labs: CRP, DDImer, Ferritin, Glucose, Lactate Dehydrogenase, CMP, CBC - Pulmonary Consulted * COVID PUI - Coronavirus PCR pending, Labs pending: CRP, DDImer, Ferritin, Glucose, Lactate Dehydrogenase, *VTE Prophylaxis - SCDs, Heparin SUBQ Q8hrs VTE prophylaxis?: Chemical, Mechanical Plan of care discussed with patient/family: Yes <JONUVALDO Ritchie - Last Filed: 12/22/20 08:45> History of Present Illness Date of admission: 12/21/20 08:41 Exam - Constitutional Vitals: Temp Pulse Resp BP Pulse Ox 97.7 F 74 16 118/71 98 12/21/20 07:36 12/21/20 07:33 12/21/20 07:33 12/21/20 07:33 12/21/20 07:33 Results - Labs CBC & Chem 7: 12/21/20 06:01 12/21/20 06:01 Labs: Laboratory Last Values WBC 10.1 K/mm3 (4.5-11.0) 12/21/20 06:01 RBC 4.72 M/mm3 (3.65-5.03) 12/21/20 06:01 Hgb 15.2 gm/dl (11.8-15.2) 12/21/20 06:01 Hct 45.3 % (35.5-45.6) 12/21/20 06:01 MCV 96 fl (84-94) H 12/21/20 06:01 MCH 32 pg (28-32) 12/21/20 06:01 MCHC 34 % (32-34) 12/21/20 06:01 RDW 14.0 % (13.2-15.2) 12/21/20 06:01 Plt Count 299 K/mm3 (140-440) 12/21/20 06:01 Lymph % (Auto) 16.8 % (13.4-35.0) 12/21/20 06:01 [place] % (Auto) 5.0 % (0.0-7.3) 12/21/20 06:01 Eos % (Auto) 2.2 % (0.0-4.3) 12/21/20 06:01 Baso % (Auto) 0.6 % (0.0-1.8) 12/21/20 06:01 Lymph # (Auto) 1.7 K/mm3 (1.2-5.4) 12/21/20 06:01 [place] # (Auto) 0.5 K/mm3 (0.0-0.8) 12/21/20 06:01 Eos # (Auto) 0.2 K/mm3 (0.0-0.4) 12/21/20 06:01 Baso # (Auto) 0.1 K/mm3 (0.0-0.1) 12/21/20 06:01 Seg Neutrophils % 75.4 % (40.0-70.0) H 12/21/20 06:01 Seg Neutrophils # 7.6 K/mm3 (1.8-7.7) 12/21/20 06:01 D-Dimer < 135.00 ng/mlDDU (0-234) 12/21/20 09: Sodium 141 mmol/L (137-145) 12/21/20 06:01 Potassium 4.3 mmol/L (3.6-5.0) 12/21/20 06:01 Chloride 106.8 mmol/L (98-107) 12/21/20 06:01 Carbon Dioxide 29 mmol/L (22-30) 12/21/20 06:01 Anion Gap 10 mmol/L 12/21/20 06:01 BUN 9 mg/dL (9-20) 12/21/20 06:01 Creatinine 0.9 mg/dL (0.8-1.3) 12/21/20 06:01 Estimated GFR > 60 ml/min 12/21/20 06:01 BUN/Creatinine Ratio 10 % 12/21/20 06:01 Glucose 106 mg/dL (75-100) H 12/21/20 06:01 Glucose 110 mg/dL (75-100) H 12/21/20 06:01 Calcium 8.6 mg/dL (8.4-10.2) 12/21/20 06:01 Ferritin 78.7 ng/mL (30.0-300.0) 12/21/20 09: Total Bilirubin 1.10 mg/dL (0.1-1.2) 12/21/20 06:01 AST 15 units/L (5-40) 12/21/20 06:01 ALT 18 units/L (7-56) 12/21/20 06:01 Alkaline Phosphatase 64 units/L (35-129) 12/21/20 06:01 Lactate Dehydrogenase 160 units/L (91-180) 12/21/20 06:01 C-Reactive Protein 0.90 mg/dL (0.00-1.30) 12/21/20 06:01 Total Protein 7.3 g/dL (6.3-8.2) 12/21/20 06:01 Albumin 4.2 g/dL (3.9-5) 12/21/20 06:01 Albumin/Globulin Ratio 1.4 % 12/21/20 06:01 Assessment and Plan Assessment and plan: I saw and evaluated the patient. I agree with the findings and the plan of care as documented in the Nurse Practitioner's~note, with the following corrections and additions.
[2020-12-21] MEDS ORDERED: methylPREDNISolone Sod Succinate 125 MG/2 ML INJ IV SCH (09:00)
[2020-12-21] MEDS ORDERED: NALOXONE 0.4 MG/1 ML INJ IV PRN (09:30)
[2020-12-21] MEDS ORDERED: ONDANSETRON 4 MG/2 ML INJ IV PRN (09:30)
[2020-12-21 09:35] LABS: C-Reactive Protein 0.9 mg/dL (0.00-1.30)
[2020-12-21] MEDS ORDERED: oxyCODONE /ACETAMINOPHEN 5-325MG TAB PO PRN (10:00)
[2020-12-21] MEDS ORDERED: MAGNESIUM SULFATE 2 GM/50 ML BAG IV ONE (10:00)
[2020-12-21] MEDS ORDERED: ACETAMINOPHEN 325 MG TAB PO PRN (10:00)
[2020-12-21] MEDS ORDERED: ALBUTEROL 2.5 MG/3 ML NEBU IH PRN (12:00)
[2020-12-21] MEDS ORDERED: HEPARIN 5,000 UNIT/1 ML VIAL SUB-Q SCH (14:00)
[2020-12-21] MEDS ORDERED: IPRATROPIUM/ALBUTEROL SULFATE 3 ML AMPUL.NEB IH SCH (14:00)
--- NOTE | 2020-12-22 08:46 | Event Note ---
Date: 12/22/20 Patient left AGAINST MEDICAL ADVICE Advised me of this. Discharge summary This is a 40-year-old AA male with a past medical history of asthma, tobacco use, and prior intubation presenting in the ED with complaints of wheezing and shortness of breath x1 day. Per Patient he recently came to the ED on 12/16/2020 for acute asthma exacerbation was discharge with some prescriptions but was unable to get them filled due to financial issues. Upon his arrival to the ED patient was still wheezing and therefore was placed on Bipap and received Solu-Medrol, epi, mag, albuterol. Chest Xray with no active findings. Hospital medicine was contacted for care management. *Acute Asthma Exacerbation - Admit ERIKA, Supplemental Oxygen, Duoneb Q6hrs, Budenoside Q12hrs, Solumedrol Q8hrs, PRN Albuterol Q4hrs for SOB - Pulmonary consult *Acute Hypoxic Respiratory Failure - Continue Bipap and supplemental Oxygen - ABG pending, Coronavirus PCR pending, Labs: CRP, DDImer, Ferritin, Glucose, Lactate Dehydrogenase, CMP, CBC - Pulmonary Consulted * COVID PUI - Coronavirus PCR pending, Labs pending: CRP, DDImer, Ferritin, Glucose, Lactate Dehydrogenase, *VTE Prophylaxis - SCDs, Heparin SUBQ Q8hrs This was the plan no additional examination was done on discharge patient asked left AGAINST MEDICAL ADVICE
== END 2020-12-21 09:39 | disposition left against medical advice (07) ==
LOC: ED 05:39 → 3A 08:41
PROVIDERS: ADMIT Internal Medicine; ATTEND Internal Medicine
DX: J96.01 Acute respiratory failure with hypoxia (principal); J45.901 Unspecified asthma with (acute) exacerbation; J45.32 Mild persistent asthma with status asthmaticus; Z87.891 Personal history of nicotine dependence; Z79.899 Other long term (current) drug therapy
CPT/HCPCS: 36415; 71045; 80053; 82728; 82947; 83615; 85025; 85379; 86140; 99291; G0378

== ENCOUNTER 2020-12-29 07:16 | Emergency (ER) | payer SELFPAY ==
[2020-12-29] MEDS ORDERED: SODIUM CHLORIDE 0.9% 1000 ML 1,000 ML IV ONE (07:24)
[2020-12-29] MEDS ORDERED: IPRATROPIUM 0.02% NEBU 2.5 ML IH ONE (07:24)
[2020-12-29] MEDS ORDERED: ALBUTEROL 2.5 MG/3 ML NEBU IH ONE (07:25)
--- NOTE | 2020-12-29 07:26 | Emergency Department Report ---
ED Asthma HPI - General Stated Complaint: MAIKEL Time Seen by Provider: 12/29/20 07:21 - History of Present Illness Initial Comments: Patient presented by ambulance secondary to an asthma exacerbation. He has a long history of asthma. Patient was found to be hypoxic in the 70s on room air per EMS. They placed the patient on BiPAP. And they administered albuterol plus steroids. They have given magnesium. They state that the last time they ran on this gentleman, about 3 or 4 days ago, he was much worse. Today, he is feeling better upon arrival here. Patient states that his asthma has been acting up. He believes this is related to the weather change. There has been no real cough or congestion. Has had no fevers or chills. Has had no sick contacts. He has never had to be intubated or admitted before. He denies recent travel. There is no pain or swelling in the feet. He has no chest pain. - Related Data Previous Rx's Medication Instructions Recorded Last Taken Type ALBUTEROL NEB's [Proventil 0.083% 2.5 mg IH TID PRN #1 box 08/15/20 Unknown Rx NEBS] Albuterol Sulfate [Proair 90 mcg IH QID PRN #1 aer.pow.ba 08/15/20 Unknown Rx Respiclick] Cetirizine HCl [ZyrTEC] 10 mg PO DAILY #30 capsule 08/15/20 Unknown Rx Fluticasone [Flonase] 1 spray NS QDAY #1 bottle 08/15/20 Unknown Rx predniSONE [Deltasone] 20 mg PO DAILY #5 tablet 08/15/20 Unknown Rx Albuterol Mdi (or & Nicu Only) 2 puff IH QID PRN #8.5 gram 12/16/20 Unknown Rx [ProAir HFA Inhaler] Albuterol Sulfate [Albuterol 0.63% 0.63 mg IH TID PRN #1 box 12/16/20 Unknown Rx NEBS] Prednisone [predniSONE 10 mg 10 mg PO .TAPER #1 tab.ds.pk 12/16/20 Unknown Rx (6-Day Pack, 21 Tabs)] Allergies Allergy/AdvReac Type Severity Reaction Status Date / Time No Known Allergies Allergy Verified 12/21/20 05:54 ED Review of Systems ROS: Stated complaint: MAIKEL Other details as noted in HPI Comment: All other systems reviewed and negative Constitutional: denies: fever Eyes: denies: eye pain ENT: denies: throat pain Respiratory: denies: cough Cardiovascular: denies: chest pain Endocrine: denies: unexplained weight loss Gastrointestinal: denies: abdominal pain Genitourinary: denies: dysuria Musculoskeletal: denies: back pain Skin: denies: rash Neurological: denies: headache Hematological/Lymphatic: denies: easy bruising ED Past Medical Hx - Past Medical History Previous Medical History?: Yes Hx Asthma: Yes - Family History Family history: no significant - Social History Smoking Status: Former Smoker Substance Use Type: None - Medications Home Medications: Home Medications Medication Instructions Recorded Confirmed Last Taken Type ALBUTEROL NEB's [Proventil 0.083% 2.5 mg IH TID PRN #1 box 08/15/20 Unknown Rx NEBS] Albuterol Sulfate [Proair 90 mcg IH QID PRN #1 aer.pow.ba 08/15/20 Unknown Rx Respiclick] Cetirizine HCl [ZyrTEC] 10 mg PO DAILY #30 capsule 08/15/20 Unknown Rx Fluticasone [Flonase] 1 spray NS QDAY #1 bottle 08/15/20 Unknown Rx predniSONE [Deltasone] 20 mg PO DAILY #5 tablet 08/15/20 Unknown Rx Albuterol Mdi (or & Nicu Only) 2 puff IH QID PRN #8.5 gram 12/16/20 Unknown Rx [ProAir HFA Inhaler] Albuterol Sulfate [Albuterol 0.63% 0.63 mg IH TID PRN #1 box 12/16/20 Unknown Rx NEBS] Prednisone [predniSONE 10 mg 10 mg PO .TAPER #1 tab.ds.pk 12/16/20 Unknown Rx (6-Day Pack, 21 Tabs)] ED Physical Exam - General Limitations: No Limitations General appearance: alert, in distress (Moderate) - Head Head exam: Present: atraumatic, normocephalic - Eye Eye exam: Present: normal appearance. Absent: EOMI, scleral icterus - ENT ENT exam: Present: normal exam, normal orophraynx - Neck Neck exam: Present: normal inspection. Absent: meningismus - Respiratory Respiratory exam: Present: respiratory distress ( moderate), wheezes ( bilateral), accessory muscle use - Cardiovascular Cardiovascular Exam: Present: normal rhythm, tachycardia - GI/Abdominal GI/Abdominal exam: Present: soft. Absent: tenderness - Extremities Exam Extremities exam: Present: normal capillary refill. Absent: pedal edema - Back Exam Back exam: Absent: CVA tenderness (R), CVA tenderness (L) - Neurological Exam Neurological exam: Present: alert, oriented X3, CN II-XII intact. Absent: motor sensory deficit - Psychiatric Psychiatric exam: Present: normal affect, normal mood - Skin Skin exam: Present: warm, dry ED Course - Reevaluation(s) Reevaluation #1: 12/29/20 07:26 EMS was met. Patient requested to be weaned from BiPAP. We can attempt that. Albuterol 10 mg plus Atrovent 1 mg have been ordered. Steroids have already been administered by EMS. Saline has been ordered. Old records reviewed. Reevaluation #2: 12/29/20 09:38 Patient has eloped. He was not in the ED. A staff member had removed his IV. Critical Care Time: No Critical care attestation.: If time is entered above; I have spent that time in minutes in the direct care of this critically ill patient, excluding procedure time. ED Disposition Clinical Impression: Asthma exacerbation Qualifiers: Asthma severity: moderate Asthma persistence: persistent Qualified Code(s): J45.41 - Moderate persistent asthma with (acute) exacerbation Disposition: 07 LEFT AWOL/ELOPED Is pt being admited?: No Condition: Undetermined
== END 2020-12-29 09:40 | disposition left against medical advice (07) ==
LOC: ED 07:16
DX: J45.901 Unspecified asthma with (acute) exacerbation (principal); Z87.891 Personal history of nicotine dependence; Z98.890 Other specified postprocedural states; Z79.899 Other long term (current) drug therapy
CPT/HCPCS: 99282

== ENCOUNTER 2021-01-06 04:10 | Emergency (ER) | payer SELFPAY ==
[2021-01-06 04:18] VITALS: BP 143/89
[2021-01-06] MEDS ORDERED: IPRATROPIUM/ALBUTEROL SULFATE 3 ML AMPUL.NEB IH ONE (04:42)
[2021-01-06] MEDS ORDERED: ALBUTEROL 2.5 MG/3 ML NEBU IH ONE (04:42)
[2021-01-06] MEDS ORDERED: predniSONE 50 MG TAB PO STA (04:43)
--- NOTE | 2021-01-06 04:45 | Emergency Department Report ---
ED Asthma HPI - General Chief Complaint: Adult Asthma Stated Complaint: ASTHMA ATTACK Time Seen by Provider: 01/06/21 04:27 Source: patient Mode of arrival: Ambulatory Limitations: No Limitations - History of Present Illness Initial Comments: 40-year-old [place] male presents emergency department complaining of another asthma exacerbation and he has run out of his inhalers as he has been using them more frequently over the past 1 to 2 months. He reports no fever, chills, sweats, hemoptysis, hematemesis hematochezia, nausea, vomiting, diarrhea, chest pain. Has been seen at the emergency department multiple times in the last month. MD Complaint: shortness of breath, wheezing -: Gradual, week(s) (3) Severity: moderate Context: ran out of meds, allergen exposure Associated Symptoms: productive cough - Related Data Previous Rx's Medication Instructions Recorded Last Taken Type ALBUTEROL NEB's [Proventil 0.083% 2.5 mg IH TID PRN #1 box 08/15/20 Unknown Rx NEBS] Albuterol Sulfate [Proair 90 mcg IH QID PRN #1 aer.pow.ba 08/15/20 Unknown Rx Respiclick] Cetirizine HCl [ZyrTEC] 10 mg PO DAILY #30 capsule 08/15/20 Unknown Rx Fluticasone [Flonase] 1 spray NS QDAY #1 bottle 08/15/20 Unknown Rx predniSONE [Deltasone] 20 mg PO DAILY #5 tablet 08/15/20 Unknown Rx Albuterol Mdi (or & Nicu Only) 2 puff IH QID PRN #8.5 gram 12/16/20 Unknown Rx [ProAir HFA Inhaler] Albuterol Sulfate [Albuterol 0.63% 0.63 mg IH TID PRN #1 box 12/16/20 Unknown Rx NEBS] Prednisone [predniSONE 10 mg 10 mg PO .TAPER #1 tab.ds.pk 12/16/20 Unknown Rx (6-Day Pack, 21 Tabs)] Albuterol Mdi (or & Nicu Only) 2 puff IH QID PRN #1 inhalation 01/06/21 Unknown Rx [ProAir HFA Inhaler] Montelukast [Singulair] 10 mg PO QPM #14 tablet 01/06/21 Unknown Rx Peak Flow Meter [[place] 1 each MC DAILY #1 each 01/06/21 Unknown Rx Peak Flow Meter] predniSONE [Deltasone] 50 mg PO QDAY #5 tab 01/06/21 Unknown Rx Allergies Allergy/AdvReac Type Severity Reaction Status Date / Time No Known Allergies Allergy Verified 12/21/20 05:54 ED Review of Systems ROS: Stated complaint: ASTHMA ATTACK Other details as noted in HPI Comment: All other systems reviewed and negative ED Past Medical Hx - Past Medical History Previous Medical History?: Yes Hx Asthma: Yes - Surgical History Past Surgical History?: No - Social History Smoking Status: Former Smoker Substance Use Type: None - Medications Home Medications: Home Medications Medication Instructions Recorded Confirmed Last Taken Type ALBUTEROL NEB's [Proventil 0.083% 2.5 mg IH TID PRN #1 box 08/15/20 Unknown Rx NEBS] Albuterol Sulfate [Proair 90 mcg IH QID PRN #1 aer.pow.ba 08/15/20 Unknown Rx Respiclick] Cetirizine HCl [ZyrTEC] 10 mg PO DAILY #30 capsule 08/15/20 Unknown Rx Fluticasone [Flonase] 1 spray NS QDAY #1 bottle 08/15/20 Unknown Rx predniSONE [Deltasone] 20 mg PO DAILY #5 tablet 08/15/20 Unknown Rx Albuterol Mdi (or & Nicu Only) 2 puff IH QID PRN #8.5 gram 12/16/20 Unknown Rx [ProAir HFA Inhaler] Albuterol Sulfate [Albuterol 0.63% 0.63 mg IH TID PRN #1 box 12/16/20 Unknown Rx NEBS] Prednisone [predniSONE 10 mg 10 mg PO .TAPER #1 tab.ds.pk 12/16/20 Unknown Rx (6-Day Pack, 21 Tabs)] Albuterol Mdi (or & Nicu Only) 2 puff IH QID PRN #1 inhalation 01/06/21 Unknown Rx [ProAir HFA Inhaler] Montelukast [Singulair] 10 mg PO QPM #14 tablet 01/06/21 Unknown Rx Peak Flow Meter [[place] 1 each MC DAILY #1 each 01/06/21 Unknown Rx Peak Flow Meter] predniSONE [Deltasone] 50 mg PO QDAY #5 tab 01/06/21 Unknown Rx ED Physical Exam - General Limitations: No Limitations General appearance: alert, in no apparent distress - Head Head exam: Present: atraumatic, normocephalic - Eye Eye exam: Present: normal appearance, PERRL Pupils: Present: normal accommodation - ENT ENT exam: Present: mucous membranes moist - Neck Neck exam: Present: normal inspection - Respiratory Respiratory exam: Present: normal lung sounds bilaterally. Absent: respiratory distress - Cardiovascular Cardiovascular Exam: Present: regular rate, normal rhythm. Absent: systolic murmur, diastolic murmur, rubs, gallop - GI/Abdominal GI/Abdominal exam: Present: soft, normal bowel sounds - Rectal Rectal exam: Present: deferred - Extremities Exam Extremities exam: Present: normal inspection - Back Exam Back exam: Present: normal inspection - Neurological Exam Neurological exam: Present: alert, oriented X3 - Psychiatric Psychiatric exam: Present: normal affect, normal mood - Skin Skin exam: Present: warm, dry, intact, normal color. Absent: rash ED Course Vital Signs 01/06/21 01/06/21 04:15 05:18 Temperature 98.2 F Pulse Rate 92 H Pulse Rate [ 88 Throughout] Respiratory 18 Rate Respiratory 20 Rate [ Throughout] Blood Pressure 143/89 O2 Sat by Pulse 94 Oximetry ED Medical Decision Making - Medical Decision Making 32-year-old male with a well-documented history of asthma which appears to be uncontrolled with his current regimen have no altered mental status, saddle respirations, belly breathing or other signs of impending ventilatory failure. No intubations or recent admissions to the hospital for asthma. Unlikely pneumonia, CHF, COPD, GERD Workup R Therapies: Prednisone 50 mg PO. Albuterol nebulizer Reassessment: Patient improved with albuterol and ipratropium in less than 3 hours. Disposition: Discharge home with return precautions. Advised to follow up with primary care physician within next 24-48 hours. Aside from this acute exacerbation patient has been well controlled on baseline home regimen. Rx short steroid course, albuterol, Singulair, Flovent Critical care attestation.: If time is entered above; I have spent that time in minutes in the direct care of this critically ill patient, excluding procedure time. ED Disposition Clinical Impression: Asthma Disposition: HOME / SELF CARE / HOMELESS Is pt being admited?: No Does the pt Need Aspirin: No Condition: Stable Instructions: Asthma (ED), Asthma, Adult, Cough, Adult, [id number], How to Use a Metered Dose Inhaler, Asthma Attack, Cough, Adult, How to Use a Dry Powder Inhaler, [id number], Peak Flow Meter Prescriptions: Peak Flow Meter [[place] Peak Flow Meter] 1 each MC DAILY #1 each predniSONE [Deltasone] 50 mg PO QDAY #5 tab Albuterol Mdi (or & Nicu Only) [ProAir HFA Inhaler] 2 puff IH QID PRN #1 inhalation PRN Reason: Shortness Of Breath Montelukast [Singulair] 10 mg PO QPM #14 tablet Referrals: [facility] [Provider Group] - 3-5 Days
== END 2021-01-06 06:44 | disposition home or self-care (01) ==
LOC: ED 04:10
DX: J45.901 Unspecified asthma with (acute) exacerbation (principal); Z87.891 Personal history of nicotine dependence
CPT/HCPCS: 94640; 99282; J7512; 94644

== ENCOUNTER 2021-01-19 13:46 | Emergency (ER) | payer SELFPAY ==
[2021-01-19] MEDS ORDERED: SODIUM CHLORIDE 0.9% 1000 ML 1,000 ML IV ONE (14:01)
[2021-01-19] MEDS ORDERED: MAGNESIUM SULFATE 2 GM/50 ML BAG IV ONE (14:01)
[2021-01-19] MEDS ORDERED: IPRATROPIUM 0.02% NEBU 2.5 ML IH ONE (14:01)
[2021-01-19] MEDS ORDERED: ALBUTEROL 2.5 MG/3 ML NEBU IH ONE (14:01)
[2021-01-19] MEDS ORDERED: methylPREDNISolone Sod Succinate 125 MG/2 ML INJ IV ONE (14:01)
--- NOTE | 2021-01-19 14:06 | Emergency Department Report ---
HPI - General Chief Complaint: Dyspnea/Respdistress Time Seen by Provider: 01/19/21 13:58 - HPI HPI: 40-year-old -[place]cu[place] male presents to the emergency department with a complaint of a 1 day history of progressively worsening shortness of breath, wheezing and dry cough that he says is "my asthma." Patient has been using his home albuterol inhaler nebulizer treatment without any relief. Patient says that he has required admission to the hospital for his asthma "a long time ago", but has never required intubation. He denies any tobacco or illicit drug use. He denies any fever, lower extremity, back pain, nausea, vomiting. He is not vaccinated against COVID-19. No recent travel or sick contacts at home. ED Past Medical Hx - Past Medical History Previous Medical History?: Yes Hx Asthma: Yes - Surgical History Past Surgical History?: No - Social History Smoking Status: Former Smoker Substance Use Type: None - Medications Home Medications: Home Medications Medication Instructions Recorded Confirmed Last Taken Type Cetirizine HCl [ZyrTEC] 10 mg PO DAILY #30 capsule 08/15/20 Unknown Rx Fluticasone [Flonase] 1 spray NS QDAY #1 bottle 08/15/20 Unknown Rx Prednisone [predniSONE 10 mg 10 mg PO .TAPER #1 tab.ds.pk 12/16/20 Unknown Rx (6-Day Pack, 21 Tabs)] Albuterol Mdi (or & Nicu Only) 2 puff IH QID PRN #1 inhalation 01/06/21 Unknown Rx [ProAir HFA Inhaler] Montelukast [Singulair] 10 mg PO QPM #14 tablet 01/06/21 Unknown Rx Peak Flow Meter [[place] Choice 1 each MC DAILY #1 each 01/06/21 Unknown Rx Peak Flow Meter] predniSONE [Deltasone] 50 mg PO QDAY #5 tab 01/06/21 Unknown Rx ALBUTEROL NEB's [Proventil 0.083% 2.5 mg IH TID PRN #1 box 01/19/21 Unknown Rx NEBS] Albuterol Mdi (or & Nicu Only) 2 puff IH QID PRN #8.5 gram 01/19/21 Unknown Rx [ProAir HFA Inhaler] predniSONE [Deltasone] 20 mg PO BID #8 tablet 01/19/21 Unknown Rx ED Review of Systems ROS: Stated complaint: ASTHMA Other details as noted in HPI Comment: All other systems reviewed and negative Constitutional: denies: chills, fever Eyes: denies: eye pain, vision change ENT: denies: ear pain, throat pain Respiratory: cough, shortness of breath, wheezing Cardiovascular: denies: chest pain, edema Gastrointestinal: denies: abdominal pain, vomiting Genitourinary: denies: dysuria, discharge Musculoskeletal: denies: back pain, arthralgia Skin: denies: rash, lesions Neurological: denies: headache, weakness Physical Exam - Physical Exam Vital Signs: Vital Signs 01/19/21 13:51 Temperature 98.3 F Pulse Rate 115 H Respiratory 16 Rate Blood Pressure 154/85 [Left] O2 Sat by Pulse 95 Oximetry Physical Exam: GENERAL: The patient is well-developed well-nourished. HENT: Normocephalic. Atraumatic. Patient has moist mucous membranes. EYES: Extraocular motions are intact. NECK: Supple. Trachea is midline. CHEST/LUNGS: Moderate wheezing throughout the chest. Tachypnea but no accessory muscle use. Mild conversational dyspnea. HEART/CARDIOVASCULAR: Regular. There is mild tachycardia. There is no murmur. ABDOMEN: Abdomen is soft, nontender. Patient has normal bowel sounds. There is no abdominal distention. SKIN: Skin is warm and dry. NEURO: The patient is awake, alert, and oriented. The patient is cooperative. The patient has no focal neurologic deficits. Normal speech. MUSCULOSKELETAL: There is no tenderness or deformity. There is no limitation range of motion. ED Course Vital Signs 01/19/21 13:51 Temperature 98.3 F Pulse Rate 115 H Respiratory 16 Rate Blood Pressure 154/85 [Left] O2 Sat by Pulse 95 Oximetry ED Medical Decision Making - Lab Data Result diagrams: 01/19/21 14:38 01/19/21 14:38 Lab Results 01/19/21 01/19/21 Range/Units 14:38 14:38 WBC 9.4 (4.5-11.0) K/mm3 RBC 4.43 (3.65-5.03) M/mm3 Hgb 14.2 (11.8-15.2) gm/dl Hct 42.2 (35.5-45.6) % MCV 95 H (84-94) fl MCH 32 (28-32) pg MCHC 34 (32-34) % RDW 14.9 (13.2-15.2) % Plt Count 249 (140-440) K/mm3 Add Manual Diff Complete Total Counted 100 Seg Neuts % (Manual) 70.0 (40.0-70.0) % Lymphocytes % (Manual) 25.0 (13.4-35.0) % Monocytes % (Manual) 2.0 (0.0-7.3) % Eosinophils % (Manual) 2.0 (0.0-4.3) % Basophils % (Manual) 1.0 (0.0-1.8) % Nucleated RBC % Not Reportable Seg Neutrophils # Man 6.6 (1.8-7.7) K/mm3 Band Neutrophils # 0.0 K/mm3 Lymphocytes # (Manual) 2.4 (1.2-5.4) K/mm3 Abs React Lymphs (Man) 0.0 K/mm3 Monocytes # (Manual) 0.2 (0.0-0.8) K/mm3 Eosinophils # (Manual) 0.2 (0.0-0.4) K/mm3 Basophils # (Manual) 0.1 (0.0-0.1) K/mm3 Metamyelocytes # 0.0 K/mm3 Myelocytes # 0.0 K/mm3 Promyelocytes # 0.0 K/mm3 Blast Cells # 0.0 K/mm3 WBC Morphology Not Reportable Hypersegmented Neuts Not Reportable Hyposegmented Neuts Not Reportable Hypogranular Neuts Not Reportable Smudge Cells Not Reportable Toxic Granulation Not Reportable Toxic Vacuolation Not Reportable Dohle Bodies Not Reportable Pelger-Huet Anomaly Not Reportable Drew Rods Not Reportable Platelet Estimate Consistent w auto Clumped Platelets Not Reportable Plt Clumps, EDTA Not Reportable Large Platelets Not Reportable Giant Platelets Not Reportable Platelet Satelliting Not Reportable Plt Morphology Comment Not Reportable RBC Morphology Normal Dimorphic RBCs Not Reportable Polychromasia Not Reportable Hypochromasia Not Reportable Poikilocytosis Not Reportable Anisocytosis Not Reportable Microcytosis Not Reportable Macrocytosis Not Reportable Spherocytes Not Reportable Pappenheimer Bodies Not Reportable Sickle Cells Not Reportable Target Cells Not Reportable Tear Drop Cells Not Reportable Ovalocytes Not Reportable Helmet Cells Not Reportable Pat[place] Bodies Not Reportable [place] Rings Not Reportable [place] Cells Not Reportable Bite Cells Not Reportable Crenated Cell Not Reportable Elliptocytes Not Reportable Acanthocytes (Spur) Not Reportable Rouleaux Not Reportable Hemoglobin C Crystals Not Reportable Schistocytes Not Reportable Malaria parasites Not Reportable Jeremías Bodies Not Reportable Hem Pathologist Commnt No Sodium 140 (137-145) mmol/L Potassium 4.2 (3.6-5.0) mmol/L Chloride 105.3 (98-107) mmol/L Carbon Dioxide 26 (22-30) mmol/L Anion Gap 13 mmol/L BUN 9 (9-20) mg/dL Creatinine 1.1 (0.8-1.3) mg/dL Estimated GFR > 60 ml/min BUN/Creatinine Ratio 8 % Glucose 130 H (75-100) mg/dL Calcium 8.7 (8.4-10.2) mg/dL - Radiology Data Radiology results: image reviewed interpreted by me: Chest x-ray shows some hyperinflation of the lungs. No pneumonia, pneumothorax, widened mediastinum. - Medical Decision Making This patient presents to the emergency department with a 1 day history of progressively worsening shortness of breath, wheezing, dry cough consistent with his previous asthma exacerbations. Patient was moved to room #38. He was given a continuous breathing treatment with 10 mg of albuterol and 1 mg of Atrovent. Patient was given 125 mg of Solu-Medrol and 2 g of magnesium. He was reevaluated and appears to be feeling much better and looks clinically improved. There is only very mild expiratory wheezing left. He no longer has any conversational dyspnea or any tachypnea. Labs have been unremarkable including CBC and metabolic panel. Chest x-ray does not show any pneumonia, pleural effusions, pneumothorax, widened mediastinum, or any other acute process. Patient be discharged home with a refill of his albuterol inhaler and nebulizer treatments, as well as a course of steroids. Critical Care Time: No Critical care attestation.: If time is entered above; I have spent that time in minutes in the direct care of this critically ill patient, excluding procedure time. ED Disposition Clinical Impression: Bronchospasm Asthma exacerbation Qualifiers: Asthma severity: unspecified severity Asthma persistence: unspecified Qualified Code(s): J45.901 - Unspecified asthma with (acute) exacerbation Disposition: 01 HOME / SELF CARE / HOMELESS Is pt being admited?: No Condition: Stable Instructions: Asthma, Adult, Bronchospasm, Adult Additional Instructions: Please follow-up with a primary care physician in the next few days. I have given you a referral for a local primary care physician, Dr. Simmons, and a primary care clinic, [facility]. Return to the emergency department with any worsening of your symptoms, new or concerning symptoms not addressed during this current emergency department visit, or with any acute distress. Prescriptions: predniSONE [Deltasone] 20 mg PO BID #8 tablet Albuterol Mdi (or & Nicu Only) [ProAir HFA Inhaler] 2 puff IH QID PRN #8.5 gram PRN Reason: Shortness Of Breath ALBUTEROL NEB's [Proventil 0.083% NEBS] 2.5 mg IH TID PRN #1 box PRN Reason: Wheezing Referrals: PRIMARY MD HA [Primary Care Provider] - 2-3 Days LYUDMILA SIMMONS MD [Staff Physician] - 2-3 Days [facility] [Provider Group] - 2-3 Days Time of Disposition: 15:31
--- NOTE | 2021-01-19 14:25 | XRay Report ---
CHEST 1 VIEW 01/19/2021 2:13 PM INDICATION / CLINICAL INFORMATION: SOB. COMPARISON: One view of the chest from 12/21/2020. FINDINGS: SUPPORT DEVICES: None. HEART / MEDIASTINUM: No significant abnormality. LUNGS / PLEURA: No significant pulmonary abnormality. No significant pleural effusion. No pneumothora x. ADDITIONAL FINDINGS: No significant additional findings. IMPRESSION: 1. No acute abnormality of the chest. Signer Name: Jaxon Silva MD Signed: 01/19/2021 2:20 PM Workstation Name: [id number]
[2021-01-19 14:48] LABS: Hematocrit 42.2 % (35.5-45.6); Hemoglobin 14.2 gm/dl (11.8-15.2); Mean Corpuscular HGB Conc 34 % (32-34); Mean Corpuscular Volume 95 fl (84-94); Platelet Count 249 K/mm3 (140-440); Red Blood Count 4.43 M/mm3 (3.65-5.03); Red Cell Distribution Width 14.9 % (13.2-15.2)
[2021-01-19 15:04] LABS: BUN/Creatinine Ratio 8; Blood Urea Nitrogen 9 mg/dL (9-20); Calcium 8.7 mg/dL (8.4-10.2); Hemolysis Index 25
[2021-01-19 15:24] LABS: Platelet Estimate Consistent w Auto; RBC Morphology Normal; Total Cells Counted 100
[2021-01-19 15:51] VITALS: BP 138/67
== END 2021-01-19 16:00 | disposition home or self-care (01) ==
LOC: ED 13:46
DX: J45.901 Unspecified asthma with (acute) exacerbation (principal); Z87.891 Personal history of nicotine dependence; Z79.899 Other long term (current) drug therapy
CPT/HCPCS: 36415; 71045; 80048; 85007; 85025; 94640; 96365; 96375; 99284; J2930; J3475; J7030; 94644

== ENCOUNTER 2021-02-17 01:56 | Observation (INO) | payer SELFPAY ==
[2021-02-17] MEDS ORDERED: ALBUTEROL 2.5 MG/3 ML NEBU IH ONE (02:01)
[2021-02-17] MEDS ORDERED: EPINEPHrine/PF 1 MG/1 ML INJ SUB-Q ONE (02:01)
[2021-02-17] MEDS ORDERED: IPRATROPIUM 0.02% NEBU 2.5 ML IH ONE (02:01)
[2021-02-17] MEDS ORDERED: LACTATED RINGERS 1,000 ML IV ONE (02:03)
--- NOTE | 2021-02-17 02:04 | Emergency Department Report ---
ED Asthma HPI - General Chief Complaint: Adult Asthma Stated Complaint: MAIKEL PUI?: No Time Seen by Provider: 02/17/21 02:01 Source: patient, EMS (Verbal report received from emergency medical services. EMS documentation not available at time of chart dictation ), RN notes reviewed, old records reviewed Mode of arrival: Stretcher Limitations: Physical Limitation - History of Present Illness Initial Comments: The patient is a 40-year-old gentleman. He has a history of asthma. Reports 1 lifetime intubation, and multiple hospitalizations. He is not COVID-19 vaccinated. He presents to the ER today via EMS with a complaint of painless cough, wheezing, shortness of breath. Patient is not COVID-19 vaccinated. Denies fever, loss of taste and smell, chest pain, vomiting, diaphoresis, leg pain, leg swelling, immobilization, DVT/PE risk factors. EMS gave the patient steroids, albuterol, magnesium, and started CPAP in the field. The patient states that he still feels short of breath, but he feels markedly improved when compared to prior. This is similar to prior asthma exacerbations. Patient believes that triggers include cold weather and change of seasons. He states he does not smoke, and he denies tobacco and smoke exposure. MD Complaint: "asthma attack", shortness of breath, wheezing -: Gradual, days(s) Asthma History: childhood onset, history of prior ED visit, previously intubated, other (Patient not followed by a special) Severity: severe, similar to prior Context: recent URI, allergen exposure, other (Cold weather) Associated Symptoms: dry cough Treatments Prior to Arrival: inhaled bronchodilator, IV steroid, CPAP - Related Data Previous Rx's Medication Instructions Recorded Last Taken Type Cetirizine HCl [ZyrTEC] 10 mg PO DAILY #30 capsule 08/15/20 Unknown Rx Fluticasone [Flonase] 1 spray NS QDAY #1 bottle 08/15/20 Unknown Rx Prednisone [predniSONE 10 mg 10 mg PO .TAPER #1 tab.ds.pk 12/16/20 Unknown Rx (6-Day Pack, 21 Tabs)] Albuterol Mdi (or & Nicu Only) 2 puff IH QID PRN #1 inhalation 01/06/21 Unknown Rx [ProAir HFA Inhaler] Montelukast [Singulair] 10 mg PO QPM #14 tablet 01/06/21 Unknown Rx Peak Flow Meter [[place] Choice 1 each MC DAILY #1 each 01/06/21 Unknown Rx Peak Flow Meter] predniSONE [Deltasone] 50 mg PO QDAY #5 tab 01/06/21 Unknown Rx ALBUTEROL NEB's [Proventil 0.083% 2.5 mg IH TID PRN #1 box 01/19/21 Unknown Rx NEBS] Albuterol Mdi (or & Nicu Only) 2 puff IH QID PRN #8.5 gram 01/19/21 Unknown Rx [ProAir HFA Inhaler] predniSONE [Deltasone] 20 mg PO BID #8 tablet 01/19/21 Unknown Rx Allergies Allergy/AdvReac Type Severity Reaction Status Date / Time No Known Allergies Allergy Verified 12/21/20 05:54 ED Review of Systems ROS: Stated complaint: MAIKEL Other details as noted in HPI Constitutional: other (Denies loss of taste and smell). denies: fever ENT: congestion. denies: epistaxis Respiratory: cough, shortness of breath, SOB with exertion, SOB at rest, wheezing Cardiovascular: denies: chest pain Gastrointestinal: denies: abdominal pain Neurological: denies: weakness Psychiatric: anxiety Hematological/Lymphatic: denies: easy bleeding ED Past Medical Hx - Past Medical History Hx Asthma: Yes - Social History Smoking Status: Former Smoker Substance Use Type: None - Medications Home Medications: Home Medications Medication Instructions Recorded Confirmed Last Taken Type Cetirizine HCl [ZyrTEC] 10 mg PO DAILY #30 capsule 08/15/20 Unknown Rx Fluticasone [Flonase] 1 spray NS QDAY #1 bottle 08/15/20 Unknown Rx Prednisone [predniSONE 10 mg 10 mg PO .TAPER #1 tab.ds.pk 12/16/20 Unknown Rx (6-Day Pack, 21 Tabs)] Albuterol Mdi (or & Nicu Only) 2 puff IH QID PRN #1 inhalation 01/06/21 Unknown Rx [ProAir HFA Inhaler] Montelukast [Singulair] 10 mg PO QPM #14 tablet 01/06/21 Unknown Rx Peak Flow Meter [[place] Choice 1 each MC DAILY #1 each 01/06/21 Unknown Rx Peak Flow Meter] predniSONE [Deltasone] 50 mg PO QDAY #5 tab 01/06/21 Unknown Rx ALBUTEROL NEB's [Proventil 0.083% 2.5 mg IH TID PRN #1 box 01/19/21 Unknown Rx NEBS] Albuterol Mdi (or & Nicu Only) 2 puff IH QID PRN #8.5 gram 01/19/21 Unknown Rx [ProAir HFA Inhaler] predniSONE [Deltasone] 20 mg PO BID #8 tablet 01/19/21 Unknown Rx ED Physical Exam - General Limitations: Physical Limitation General appearance: alert, anxious, obese - Head Head exam: Present: atraumatic, normocephalic - Eye Eye exam: Present: normal appearance, EOMI. Absent: nystagmus - ENT ENT exam: Present: normal exam, normal orophraynx, mucous membranes moist, normal external ear exam - Neck Neck exam: Present: normal inspection, full ROM. Absent: tenderness, meningismus - Respiratory Respiratory exam: Present: respiratory distress, wheezes, rhonchi, accessory muscle use - Cardiovascular Cardiovascular Exam: Present: regular rate, normal rhythm, normal heart sounds. Absent: bradycardia, tachycardia, irregular rhythm, systolic murmur, diastolic murmur, rubs, gallop - GI/Abdominal GI/Abdominal exam: Present: soft. Absent: distended, tenderness, guarding, rebound, rigid, pulsatile mass - Rectal Rectal exam: Present: deferred - Extremities Exam Extremities exam: Present: normal inspection, full ROM, other (2+ pulses noted in the bilateral upper and lower extremities. There is no palpable cord. negative Homans sign. Muscular compartments are soft. The pelvis is stable.). Absent: pedal edema, calf tenderness - Back Exam Back exam: Present: normal inspection. Absent: tenderness, CVA tenderness (R), CVA tenderness (L), paraspinal tenderness, vertebral tenderness - Neurological Exam Neurological exam: Present: alert, other (No facial droop. Tongue midline. Extraocular movements intact bilaterally. Facial sensation intact to light touch in V1, V2, V3 distribution bilaterally. 5 and a 5 strength in 4 extremities. Sensation intact to light touch in 4 extremities.). Absent: motor sensory deficit - Psychiatric Psychiatric exam: Present: anxious - Skin Skin exam: Present: warm, dry, intact, normal color. Absent: rash ED Course Vital Signs 02/17/21 02/17/21 02:24 02:25 Temperature 98.0 F Pulse Rate 98 H Pulse Rate [ 98 H Bilateral Throughout] Respiratory 16 Rate Respiratory 24 Rate [Bilateral Throughout] Blood Pressure 104/73 [Left] O2 Sat by Pulse 98 Oximetry - Reevaluation(s) Reevaluation #1: 02/17/21 02:37 Differential diagnosis, including but not limited to: Asthma exacerbation, bronchitis, pneumonia, reactive airways disease Assessment and plan: 40-year-old gentleman, who denies DVT and pulmonary embolism risk factors, who is low risk by Wells criteria for pulmonary embolism, who is PERC negative, with a known history of asthma and reactive airways dise ase, intubation x1, and hospitalizations, likely presenting with acute severe asthma exacerbation. EMS administered CPAP, albuterol, steroids and magnesium. Patient is improved, but still wheezing. Start albuterol, Atrovent, subcu epinephrine. Laboratory studies, EKG, chest x-ray will be obtained. Have recommended admission to the medical service for asthma exacerbation. The patient is agree able to this plan of care. He feels improved at this time. Awaiting laboratory and x-ray studies. 02/17/21 03:40 Laboratory studies and x-rays reviewed and appreciated. Nurse practitioner, Belia Ritchie working with Dr Lora Maddox to admit to [facility] Reevaluation #2: 02/17/21 03:46 Arterial blood gas demonstrates pH of 7.349, PaCO2 of 44.5, PaO2 64.6, PA HCO3, 24.0. This is consistent with acute hypoxemic respiratory failure. Supplemental oxygen continued ED Medical Decision Making - Lab Data Result diagrams: 02/17/21 02:37 02/17/21 02:37 Vital Signs 02/17/21 02/17/21 02:24 02:25 Temperature 98.0 F Pulse Rate 98 H Pulse Rate [ 91 H Bilateral Throughout] Respiratory 16 Rate Respiratory 24 Rate [Bilateral Throughout] Blood Pressure 104/73 [Left] O2 Sat by Pulse 98 Oximetry Lab Results 02/17/21 02/17/21 02/17/21 Range/Units 02:37 02:37 02:37 WBC 9.2 (4.5-11.0) K/mm3 RBC 4.61 (3.65-5.03) M/mm3 Hgb 14.6 (11.8-15.2) gm/dl Hct 44.2 (35.5-45.6) % MCV 96 H (84-94) fl MCH 32 (28-32) pg MCHC 33 (32-34) % RDW 14.8 (13.2-15.2) % Plt Count 287 (140-440) K/mm3 Lymph % (Auto) 14.5 (13.4-35.0) % [place] % (Auto) 6.3 (0.0-7.3) % Eos % (Auto) 1.8 (0.0-4.3) % Baso % (Auto) 0.2 (0.0-1.8) % Lymph # (Auto) 1.3 (1.2-5.4) K/mm3 [place] # (Auto) 0.6 (0.0-0.8) K/mm3 Eos # (Auto) 0.2 (0.0-0.4) K/mm3 Baso # (Auto) 0.0 (0.0-0.1) K/mm3 Seg Neutrophils % 77.2 H (40.0-70.0) % Seg Neutrophils # 7.1 (1.8-7.7) K/mm3 PT 14.5 (12.2-14.9) Sec. INR 1.02 (0.87-1.13) Sodium 139 (137-145) mmol/L Potassium 4.1 (3.6-5.0) mmol/L Chloride 102.7 (98-107) mmol/L Carbon Dioxide 25 (22-30) mmol/L Anion Gap 15 mmol/L BUN 7 L (9-20) mg/dL Creatinine 0.9 (0.8-1.3) mg/dL Estimated GFR > 60 ml/min BUN/Creatinine Ratio 8 % Glucose 129 H (75-100) mg/dL Calcium 9.0 (8.4-10.2) mg/dL Magnesium (1.7-2.3) mg/dL Total Creatine Kinase (55-170) units/L 02/17/21 Range/Units 02:37 WBC (4.5-11.0) K/mm3 RBC (3.65-5.03) M/mm3 Hgb (11.8-15.2) gm/dl Hct (35.5-45.6) % MCV (84-94) fl MCH (28-32) pg MCHC (32-34) % RDW (13.2-15.2) % Plt Count (140-440) K/mm3 Lymph % (Auto) (13.4-35.0) % [place] % (Auto) (0.0-7.3) % Eos % (Auto) (0.0-4.3) % Baso % (Auto) (0.0-1.8) % Lymph # (Auto) (1.2-5.4) K/mm3 [place] # (Auto) (0.0-0.8) K/mm3 Eos # (Auto) (0.0-0.4) K/mm3 Baso # (Auto) (0.0-0.1) K/mm3 Seg Neutrophils % (40.0-70.0) % Seg Neutrophils # (1.8-7.7) K/mm3 PT (12.2-14.9) Sec. INR (0.87-1.13) Sodium (137-145) mmol/L Potassium (3.6-5.0) mmol/L Chloride (98-107) mmol/L Carbon Dioxide (22-30) mmol/L Anion Gap mmol/L BUN (9-20) mg/dL Creatinine (0.8-1.3) mg/dL Estimated GFR ml/min BUN/Creatinine Ratio % Glucose (75-100) mg/dL Calcium (8.4-10.2) mg/dL Magnesium 2.40 H (1.7-2.3) mg/dL Total Creatine Kinase 426 H (55-170) units/L - EKG Data 02/17/21 02:38 The EKG is interpreted at 02: 1 3 Sinus rhythm, 95 bpm. There is a leftward axis deviation. There is normal P wave axis. Intervals are within normal limits. There is a borderline left anterior fascicular block. This is an abnormal EKG. The EKG is not a STEMI. - Radiology Data Radiology results: pending, report reviewed, image reviewed CHEST 1 VIEW 02/17/2021 2:18 AM INDICATION / CLINICAL INFORMATION: Dyspnea. COMPARISON: 01/19/2021. FINDINGS: SUPPORT DEVICES: None. HEART / MEDIASTINUM: No significant abnormality. LUNGS / PLEURA: No significant pulmonary or pleural abnormality. No pneumothorax. ADDITIONAL FINDINGS: No significant additional findings. IMPRESSION: No acute abnormality. Signer Name: Kwesi Diego MD Signed: 02/17/2021 1:54 AM Workstation Name: [id number] Critical Care Time: Yes Critical care time in (mins) excluding proc time.: 35 Critical care attestation.: If time is entered above; I have spent that time in minutes in the direct care of this critically ill patient, excluding procedure time. ED Disposition Clinical Impression: Status asthmaticus, Acute hypoxemic respiratory failure Disposition: ADMITTED INPATIENT Is pt being admited?: Yes Does the pt Need Aspirin: No Condition: Serious
--- NOTE | 2021-02-17 02:58 | XRay Report ---
CHEST 1 VIEW 02/17/2021 2:18 AM INDICATION / CLINICAL INFORMATION: Dyspnea. COMPARISON: 01/19/2021. FINDINGS: SUPPORT DEVICES: None. HEART / MEDIASTINUM: No significant abnormality. LUNGS / PLEURA: No significant pulmonary or pleural abnormality. No pneumothorax. ADDITIONAL FINDINGS: No significant additional findings. IMPRESSION: No acute abnormality. Signer Name: Kwesi Diego MD Signed: 02/17/2021 2:54 AM Workstation Name: [id number]
[2021-02-17 03:00] LABS: Basophils % (Auto) 0.2 % (0.0-1.8); Eosinophils # (Auto) 0.2 K/mm3 (0.0-0.4); Eosinophils % (Auto) 1.8 % (0.0-4.3); Hematocrit 44.2 % (35.5-45.6); Hemoglobin 14.6 gm/dl (11.8-15.2); Lymphocytes # (Auto) 1.3 K/mm3 (1.2-5.4); Lymphocytes % (Auto) 14.5 % (13.4-35.0); Mean Corpuscular HGB Conc 33 % (32-34); Mean Corpuscular Volume 96 fl (84-94); Monocytes # (Auto) 0.6 K/mm3 (0.0-0.8); Monocytes % (Auto) 6.3 % (0.0-7.3); Platelet Count 287 K/mm3 (140-440); Red Blood Count 4.61 M/mm3 (3.65-5.03); Red Cell Distribution Width 14.8 % (13.2-15.2)
[2021-02-17 03:06] LABS: BUN/Creatinine Ratio 8; Blood Urea Nitrogen 7 mg/dL (9-20); Hemolysis Index 4
[2021-02-17 03:17] LABS: INR 1.02 (0.87-1.13)
[2021-02-17] MEDS ORDERED: ONDANSETRON 4 MG/2 ML INJ IV PRN (04:10)
[2021-02-17] MEDS ORDERED: MORPHINE 2 MG/1 ML INJ IV PRN (04:10)
[2021-02-17] MEDS ORDERED: MAGNESIUM HYDROXIDE (MOM) ORAL LIQD UDC PO PRN (04:10)
[2021-02-17] MEDS ORDERED: ALUM-MAG HYDROXIDE-SIMETHICONE 200-200-20MG/5ML ORAL LIQD 30 ML PO PRN (04:10)
[2021-02-17] MEDS ORDERED: MORPHINE 4 MG/1 ML INJ IV PRN (04:10)
[2021-02-17] MEDS ORDERED: ACETAMINOPHEN 325 MG TAB PO PRN (04:10)
[2021-02-17] MEDS ORDERED: NALOXONE 0.4 MG/1 ML INJ IV PRN (04:10)
[2021-02-17] MEDS ORDERED: oxyCODONE /ACETAMINOPHEN 5-325MG TAB PO PRN (04:10)
--- NOTE | 2021-02-17 04:10 | History and Physical Report ---
History of Present Illness Date of examination: 02/17/21 Date of admission: 02/17/21 Chief complaint: asthma exacerbation wheezing History of present illness: This is a 50-year-old male seen in the ED at bedside. Patient is on oxygen per nasal cannulaoxygen saturation 98%. Patient presents to emergency room with chief complaint of asthma exacerbation with wheezing and shortness of breath. Patient has a history of asthma, one lifetime intubation, and multiple hospital admission secondary to asthma. On assessment he has bilateral wheezing. He said that the wheezing has been ongoing but he has worsened and he started coming to the hospital. He reports not being vaccinated with COVID-19 vaccine. Patient advised to get his Covid vaccine post admission discharge. Patient voiced understanding. I reviewed medication record, history record, and vital signs. [place] has been consulted. Patient denies tobacco use, chronic alcohol abuse, and illicit drug use. Past History Past Medical History: other (asthma) Past Surgical History: No surgical history Social history: lives with family, full code. denies: smoking, alcohol abuse, prescription drug abuse, IV drug use Medications and Allergies Allergies Allergy/AdvReac Type Severity Reaction Status Date / Time No Known Allergies Allergy Verified 12/21/20 05:54 Home Medications Medication Instructions Recorded Confirmed Last Taken Type Cetirizine HCl [ZyrTEC] 10 mg PO DAILY #30 capsule 08/15/20 Unknown Rx Fluticasone [Flonase] 1 spray NS QDAY #1 bottle 08/15/20 Unknown Rx Prednisone [predniSONE 10 mg 10 mg PO .TAPER #1 tab.ds.pk 12/16/20 Unknown Rx (6-Day Pack, 21 Tabs)] Albuterol Mdi (or & Nicu Only) 2 puff IH QID PRN #1 inhalation 01/06/21 Unknown Rx [ProAir HFA Inhaler] Montelukast [Singulair] 10 mg PO QPM #14 tablet 01/06/21 Unknown Rx Peak Flow Meter [[place] Choice 1 each MC DAILY #1 each 01/06/21 Unknown Rx Peak Flow Meter] predniSONE [Deltasone] 50 mg PO QDAY #5 tab 01/06/21 Unknown Rx ALBUTEROL NEB's [Proventil 0.083% 2.5 mg IH TID PRN #1 box 01/19/21 Unknown Rx NEBS] Albuterol Mdi (or & Nicu Only) 2 puff IH QID PRN #8.5 gram 01/19/21 Unknown Rx [ProAir HFA Inhaler] predniSONE [Deltasone] 20 mg PO BID #8 tablet 01/19/21 Unknown Rx Review of Systems Constitutional: weakness Ears, nose, mouth and throat: no epistaxis, no bleeding gums Respiratory: no wheezing Gastrointestinal: no melena Integumentary: no rash, no pruritis, no redness Neurological: no head injury, no vertigo, no headaches Psychiatric: no anxiety Hematologic/Lymphatic: no easy bruising, no easy bleeding, no lymphadenopathy, no lymphedema Allergic/Immunologic: no urticaria Exam - Constitutional Vitals: Temp Pulse Resp BP Pulse Ox 98.0 F 98 H 24 104/73 98 02/17/21 02:24 02/17/21 02:25 02/17/21 02:25 02/17/21 02:24 02/17/21 02:24 General appearance: Present: mild distress, well-nourished - EENT Eyes: Present: PERRL ENT: hearing intact, clear oral mucosa - Neck Neck: Present: supple, normal ROM - Respiratory Respiratory effort: normal, other (wheezing) Respiratory: bilateral: CTA - Cardiovascular Heart Sounds: Present: S1 & S2. Absent: rub, click - Extremities Extremities: pulses symmetrical, No edema Peripheral Pulses: within normal limits - Abdominal General gastrointestinal: Present: soft, non-tender, non-distended, normal bowel sounds Male genitourinary: Present: normal - Integumentary Integumentary: Present: clear, warm, dry - Musculoskeletal Musculoskeletal: gait normal, strength equal bilaterally - Psychiatric Psychiatric: appropriate mood/affect, intact judgment & insight, cooperative - Neurologic Neurologic: CNII-XII intact, moves all extremities - Allied Health Allied health notes reviewed: nursing Results - Labs CBC & Chem 7: 02/17/21 02:37 02/17/21 02:37 Labs: Abnormal lab results 02/17/21 02/17/21 02/17/21 Range/Units 02:37 02:37 02:37 MCV 96 H (84-94) fl Seg Neutrophils % 77.2 H (40.0-70.0) % POC ABG pO2 (83-108) mmHg ABG Oxyhemoglobin (94-98) ABG Sodium (136.0-145.0) mmol/L ABG Glucose (65-95) mg/dL BUN 7 L (9-20) mg/dL Glucose 129 H (75-100) mg/dL Magnesium 2.40 H (1.7-2.3) mg/dL Total Creatine Kinase 426 H (55-170) units/L Arterial Blood Glucose (65-95) mg/dL 02/17/21 Range/Units 04:35 MCV (84-94) fl Seg Neutrophils % (40.0-70.0) % POC ABG pO2 64.6 L (83-108) mmHg ABG Oxyhemoglobin 90.8 L (94-98) ABG Sodium 135.5 L (136.0-145.0) mmol/L ABG Glucose 129 H (65-95) mg/dL BUN (9-20) mg/dL Glucose (75-100) mg/dL Magnesium (1.7-2.3) mg/dL Total Creatine Kinase (55-170) units/L Arterial Blood Glucose 129 H (65-95) mg/dL Assessment and Plan - Patient Problems (1) Status asthmaticus Current Visit: No Status: Acute Plan to address problem: Patient with history of asthma. Wheezing and auscultation continue bronchodilators, systemic steroid and oxygen supplements. [place] consulted (2) Acute respiratory failure with hypoxia Current Visit: Yes Status: Acute Plan to address problem: ABGs and oxygen supplement checks x-ray done with no acute finding (3) Hypomagnesemia Current Visit: Yes Status: Acute Plan to address problem: Monitor magnesium-magnesium mildly elevated2.4 recheck mag (4) DVT prophylaxis Current Visit: Yes Status: Acute Plan to address problem: Subcutaneous Lovenox
[2021-02-17] MEDS: methylPREDNISolone Sod Succinate 125 MG/2 ML INJ IV SCH ×3 (06:30→22:21)
[2021-02-17] MEDS ORDERED: IPRATROPIUM/ALBUTEROL SULFATE 3 ML AMPUL.NEB IH ONE (08:40)
[2021-02-17] MEDS: AZITHROMYCIN 250 MG TAB PO SCH (09:43)
[2021-02-17] MEDS: IPRATROPIUM/ALBUTEROL SULFATE 3 ML AMPUL.NEB IH SCH ×2 (13:32→20:20)
--- NOTE | 2021-02-17 14:12 | Event Note ---
Date: 02/17/21
[2021-02-17] MEDS: ALBUTEROL 2.5 MG/3 ML NEBU IH PRN (17:03)
--- NOTE | 2021-02-17 21:28 | Consultation ---
History of Present Illness Consult date: 02/17/21 Requesting physician: SILVIA ARNOLD Reason for consult: dyspnea History of present illness: 40 yo with asthma with increased SOB, wheezing, cough with white sputum. No fevers, chills, chest pain, hemoptysis. Past History Past Medical History: other (asthma) Past Surgical History: No surgical history Social history: lives with family, full code. denies: smoking, alcohol abuse, prescription drug abuse, IV drug use Medications and Allergies Allergies Allergy/AdvReac Type Severity Reaction Status Date / Time No Known Allergies Allergy Verified 12/21/20 05:54 Home Medications Medication Instructions Recorded Confirmed Last Taken Type Cetirizine HCl [ZyrTEC] 10 mg PO DAILY #30 capsule 08/15/20 02/17/21 Unknown Rx Fluticasone [Flonase] 1 spray NS QDAY #1 bottle 08/15/20 02/17/21 Unknown Rx Prednisone [predniSONE 10 mg 10 mg PO .TAPER #1 tab.ds.pk 12/16/20 02/17/21 Unknown Rx (6-Day Pack, 21 Tabs)] Albuterol Mdi (or & Nicu Only) 2 puff IH QID PRN #1 inhalation 01/06/21 02/17/21 Unknown Rx [ProAir HFA Inhaler] Montelukast [Singulair] 10 mg PO QPM #14 tablet 01/06/21 02/17/21 Unknown Rx Peak Flow Meter [[place] Choice 1 each MC DAILY #1 each 01/06/21 02/17/21 Unknown Rx Peak Flow Meter] predniSONE [Deltasone] 50 mg PO QDAY #5 tab 01/06/21 02/17/21 Unknown Rx ALBUTEROL NEB's [Proventil 0.083% 2.5 mg IH TID PRN #1 box 01/19/21 02/17/21 Unknown Rx NEBS] Albuterol Mdi (or & Nicu Only) 2 puff IH QID PRN #8.5 gram 01/19/21 02/17/21 Unknown Rx [ProAir HFA Inhaler] predniSONE [Deltasone] 20 mg PO BID #8 tablet 01/19/21 02/17/21 Unknown Rx Active Meds: Active Medications Acetaminophen (Acetaminophen 325 Mg Tab) 650 mg PO Q4H PRN PRN Reason: Pain MILD(1-3)/Fever >100.5/TURNER Al Hydrox/Mg Hydrox/Simethicone (Alum-Mag Hydroxide-Simethicone [phone]/5ml Oral Liqd 30 Ml) 30 ml PO Q4H PRN PRN Reason: Indigestion Albuterol (Albuterol 2.5 Mg/3 Ml Nebu) 2.5 mg IH Q4HRT PRN PRN Reason: Shortness Of Breath Last Admin: 02/17/21 17:03 Dose: 2.5 mg Documented by: Azithromycin (Azithromycin 250 Mg Tab) 500 mg PO QDAY [facility]; Protocol Last Admin: 02/17/21 09:43 Dose: 500 mg Documented by: Enoxaparin Sodium (Enoxaparin 40 Mg/0.4 Ml Inj) 40 mg SUB-Q QDAY@2200 [facility]; Protocol Magnesium Hydroxide (Magnesium Hydroxide (Mom) Oral Liqd Udc) 30 ml PO Q4H PRN PRN Reason: Constipation Methylprednisolone Sodium Succinate (Methylprednisolone Sod Succinate 125 Mg/2 Ml Inj) 125 mg IV Q8HR [facility] Last Admin: 02/17/21 15:02 Dose: 125 mg Documented by: Morphine Sulfate (Morphine 4 Mg/1 Ml Inj) 4 mg IV Q4H PRN PRN Reason: Pain , Severe (7-10) Morphine Sulfate (Morphine 2 Mg/1 Ml Inj) 2 mg IV Q4H PRN PRN Reason: Pain, Moderate (4-6) Naloxone HCl (Naloxone 0.4 Mg/1 Ml Inj) 0.1 mg IV Q2MIN PRN PRN Reason: Res Rate </= 8 or 02 SAT < 92% Ondansetron HCl (Ondansetron 4 Mg/2 Ml Inj) 4 mg IV Q8H PRN PRN Reason: Nausea And Vomiting Oxycodone/Acetaminophen (Oxycodone /Acetaminophen 5-325mg Tab) 1 tab PO Q6H PRN PRN Reason: Pain, Moderate (4-6) Sodium Chloride (Sodium Chloride 0.9% 10 Ml Flush Syringe) 10 ml IV BID [facility] Last Admin: 02/17/21 09:44 Dose: 10 ml Documented by: Sodium Chloride (Sodium Chloride 0.9% 10 Ml Flush Syringe) 10 ml IV PRN PRN PRN Reason: LINE FLUSH Review of Systems All systems: negative Physical Examination Vital signs: Vital Signs Pulse Ox 98 02/17/21 02:20 General appearance: no acute distress, alert Eyes: non-icteric ENT: oropharynx moist Neck: supple Effort: normal Ascultation: Bilateral: wheezes Cardiovascular: regular rate and rhythm Gastrointestinal: normoactive bowel sounds, soft, non-tender, non-distended Integumentary: normal Extremities: no cyanosis, no edema, pink and warm Musculoskeletal: no deformities normal mental status, non-focal exam, pupils equal and round mood appropriate, affect normal Results - Laboratory Findings CBC and BMP: 02/17/21 02:37 02/17/21 02:37 ABG ABG pH 7.349 (7.320-7.450) 02/17/21 04:35 POC ABG pCO2 44.5 mmHg (32.0-48.0) 02/17/21 04:35 POC ABG pO2 64.6 mmHg (83-108) L 02/17/21 04:35 POC ABG HCO3 24.0 02/17/21 04:35 ABG O2 Saturation 91.5 (0-100) 02/17/21 04:35 PT/INR, D-dimer PT 14.5 Sec. (12.2-14.9) 02/17/21 02:37 INR 1.02 (0.87-1.13) 02/17/21 02:37 Abnormal lab findings: Abnormal Labs 02/17/21 02/17/21 02/17/21 02:37 02:37 02:37 MCV 96 H Seg Neutrophils % 77.2 H POC ABG pO2 ABG Oxyhemoglobin ABG Sodium ABG Glucose BUN 7 L Glucose 129 H Magnesium 2.40 H Total Creatine Kinase 426 H Arterial Blood Glucose 02/17/21 04:35 MCV Seg Neutrophils % POC ABG pO2 64.6 L ABG Oxyhemoglobin 90.8 L ABG Sodium 135.5 L ABG Glucose 129 H BUN Glucose Magnesium Total Creatine Kinase Arterial Blood Glucose 129 H - Diagnostic Findings Chest x-ray: report reviewed, image reviewed Assessment and Plan Imp: 1. Severe persistent asthma with acute exac. 2. Acute respiratory distress 3. Obesity Rec: 1. Solumedrol IV 2. Duonebs QID 3. DVT PPx added 4. Needs outpatient controller therapy; would consider generic Airduo high-dose since it is likely the cheapest option 5. Further plans pending clinical course Plan of care reviewed w/ patient, he understands/agrees Thanks for the consult. Will follow with you.
[2021-02-17] MEDS ORDERED: ENOXAPARIN 40 MG/0.4 ML INJ SUB-Q SCH (22:00)
[2021-02-18] MEDS: ALBUTEROL 2.5 MG/3 ML NEBU IH PRN ×2 (01:45→04:50)
[2021-02-18] MEDS: methylPREDNISolone Sod Succinate 125 MG/2 ML INJ IV SCH (06:02)
[2021-02-18] MEDS ORDERED: IPRATROPIUM/ALBUTEROL SULFATE 3 ML AMPUL.NEB IH SCH ×2 (08:00→14:00)
[2021-02-18] MEDS ORDERED: ALBUTEROL 2.5 MG/3 ML NEBU IH PRN (08:14)
[2021-02-18] MEDS ORDERED: ARFORMOTEROL 15 MCG/2 ML NEBU IH SCH (08:30)
--- NOTE | 2021-02-18 09:01 | Discharge Summary ---
Providers - Providers Date of Admission: 02/17/21 03:04 Date of discharge: 02/18/21 Attending physician: DINORAH SHARMA 02/17/21 04:10 Consult to Physician [CONS] Stat Comment: Consulting Provider: EDILBERTO CRAIN Physician Instructions: Reason For Exam: asthma Primary care physician: [employer] SUPER[employer]OR Hospitalization Condition: Serious Time spent for discharge: 34 minutes Exam - Constitutional Vitals: Temp Pulse Resp BP Pulse Ox 98.2 F 94 H 20 104/69 95 02/18/21 04:40 02/18/21 08:07 02/18/21 08:07 02/18/21 04:40 02/18/21 08:11 Plan Activity: advance as tolerated Weight Bearing Status: Weight Bear as Tolerated Diet: low fat, low salt Follow up with: PRIMARY CARE,MD [Primary Care Provider] - 7 Days Prescriptions: Fluticasone [Flonase] 1 spray NS QDAY #1 bottle Prednisone [predniSONE 10 mg (6-Day Pack, 21 Tabs)] 10 mg PO .TAPER #1 tab.ds.pk Albuterol Mdi (or & Nicu Only) [ProAir HFA Inhaler] 2 puff IH QID PRN #1 inhalation PRN Reason: Shortness Of Breath Montelukast [Singulair] 10 mg PO QPM #30 tablet Azithromycin [Zithromax TAB] 500 mg PO QDAY #3 tablet Cetirizine HCl [ZyrTEC 10mg cap] 10 mg PO DAILY #30 capsule
[2021-02-18] MEDS: BUDESONIDE 0.5 MG/2 ML NEBU IH SCH ×2 (09:22→14:09)
[2021-02-18 10:51] VITALS: BP 125/67
[2021-02-18] MEDS: AZITHROMYCIN 250 MG TAB PO SCH (11:29)
--- NOTE | 2021-02-19 11:24 | Electrocardiograph Report ---
[facility] Test Date: 2021-02-17 Test Time: 02:13:09 Pat Name: REJI SHAW Department: Room: A376 1 Gender: M Applied Researcher: Quynh DELGADO : 1980 Requested By: JULIETA LOBO Order Number: [id number] Reading MD: Taylor Rosenberg Measurements Intervals [place] Rate: 95 P: 83 CO: 159 QRS: -58 QRSD: 93 T: 59 QT: 335 QTc: 421 Interpretive Statements Sinus rhythm LAE, consider biatrial enlargement Left axis deviation Compared to ECG 01/20/2021 10:08:39 Sinus rate has decreased Electronically Signed On 02-19-2021 11:24:07 EST by Taylor Rosenberg
== END 2021-02-18 15:14 | disposition home or self-care (01) ==
LOC: ED 01:56 → 3A 03:04
PROVIDERS: ADMIT Internal Medicine Geriatric Medicine; ATTEND Internal Medicine
DX: J96.01 Acute respiratory failure with hypoxia (principal); J45.902 Unspecified asthma with status asthmaticus; E83.42 Hypomagnesemia; E66.9 Obesity, unspecified; Z87.891 Personal history of nicotine dependence; Z68.32 Body mass index [BMI] 32.0-32.9, adult
CPT/HCPCS: 36415; 71045; 80048; 82550; 82805; 83735; 85025; 85610; 93005; 94640; 96372; 96374; 96376; 99291; G0378; J0171; J1650; J2930; J7120; 94644; J3490

== ENCOUNTER 2021-10-26 09:49 | Emergency (ER) | payer SELFPAY ==
--- NOTE | 2021-10-26 10:27 | XRay Report ---
CHEST 2 VIEWS INDICATION / CLINICAL INFORMATION: Asthma. COMPARISON: 02/17/21. FINDINGS: SUPPORT DEVICES: None. HEART / MEDIASTINUM: The heart size and pulmonary vasculature are normal. LUNGS / PLEURA: The lungs are mildly hyperinflated, but clear. No pneumothorax. ADDITIONAL FINDINGS: No significant additional findings. IMPRESSION: Hyperinflation of the lungs may be seen with asthma. No evidence of pneumonia. Signer Name: Colin Alcantara MD Signed: 10/26/2021 10:22 AM Workstation Name: [id number]
[2021-10-26] MEDS ORDERED: IPRATROPIUM/ALBUTEROL SULFATE 3 ML AMPUL.NEB IH ONE ×3 (10:39→16:03)
[2021-10-26] MEDS ORDERED: methylPREDNISolone Sod Succinate 125 MG/2 ML INJ IM ONE (10:42)
[2021-10-26] MEDS ORDERED: ACETAMINOPHEN W/CODEINE 300-30 MG TAB PO ONE (10:42)
[2021-10-26] MEDS ORDERED: BENZONATATE 100 MG CAP PO ONE (10:42)
--- NOTE | 2021-10-26 10:46 | Emergency Department Report ---
ED Shortness of Breath HPI - General Chief Complaint: Adult Asthma Stated Complaint: MAIKEL/SOB Time Seen by Provider: 10/26/21 10:39 Source: EMS, language interpreter Mode of arrival: Stretcher Limitations: No Limitations - History of Present Illness Initial Comments: 40-year-old black male with a past medical history of asthma presents to the emergency department for evaluation of 1 week history of worsening shortness of breath. He states that he ran out of his inhalers so he has not been able to treat his shortness of breath. He states that he has also had a persistent cough with wheezing and intermittent pain in his chest. He denies fever, weakness, and a decrease in appetite. MD Complaint: shortness of breath, cough, chest pain, "asthma attack" -: Gradual, week(s) (1) Pain Scale: 6 Quality: other (Tightness) Consistency: intermittent Known History Of: asthma Associated Symptoms: chest pain, pain with inspiration, cough Treatments Prior to Arrival: none - Related Data Home Oxygen Therapy: No Previous Rx's Medication Instructions Recorded Last Taken Type Peak Flow Meter [[place] 1 each MC DAILY #1 each 01/06/21 Unknown Rx Peak Flow Meter] Albuterol Mdi (or & Nicu Only) 2 puff IH QID PRN #1 inhalation 02/18/21 Unknown Rx [ProAir HFA Inhaler] Azithromycin [Zithromax TAB] 500 mg PO QDAY #3 tablet 02/18/21 Unknown Rx Cetirizine HCl [ZyrTEC 10mg cap] 10 mg PO DAILY #30 capsule 02/18/21 Unknown Rx Fluticasone [Flonase] 1 spray NS QDAY #1 bottle 02/18/21 Unknown Rx Ipratropium/Albuterol Sulfate 1 ampul IH TIDRT #30 ampul.neb 02/18/21 Unknown Rx [DUONEB *Not for PRN Use*] Montelukast [Singulair] 10 mg PO QPM #30 tablet 02/18/21 Unknown Rx Prednisone [predniSONE 10 mg 10 mg PO .TAPER #1 tab.ds.pk 02/18/21 Unknown Rx (6-Day Pack, 21 Tabs)] ALBUTEROL NEB's [Proventil 0.083% 2.5 mg IH TID PRN #10 neb 10/26/21 Unknown Rx NEBS] Albuterol Mdi (or & Nicu Only) 2 puff IH QID PRN #8.5 gram 10/26/21 Unknown Rx [ProAir HFA Inhaler] Benzonatate [Tessalon Perles] 100 mg PO Q8HR PRN #30 cap 10/26/21 Unknown Rx Prednisone [predniSONE 10 mg 10 mg PO .TAPER #1 pack 10/26/21 Unknown Rx (6-Day Pack, 21 Tabs)] guaiFENesin/CODEINE [Robitussin AC] 10 ml PO TID PRN #120 ml 10/26/21 Unknown Rx Allergies Allergy/AdvReac Type Severity Reaction Status Date / Time No Known Allergies Allergy Verified 10/26/21 09:54 ED Review of Systems ROS: Stated complaint: MAIKEL/SOB Other details as noted in HPI Comment: All other systems reviewed and negative Constitutional: denies: chills, fever, malaise, weakness ENT: denies: ear pain, congestion Respiratory: cough, shortness of breath, SOB with exertion, SOB at rest, wheezing. denies: stridor Cardiovascular: chest pain. denies: palpitations, dyspnea on exertion, orthopnea, edema, syncope, paroxysmal nocturnal dyspnea Gastrointestinal: denies: abdominal pain, nausea, vomiting Genitourinary: denies: urgency, dysuria Musculoskeletal: denies: back pain Skin: denies: rash, lesions Neurological: denies: headache, weakness ED Past Medical Hx - Past Medical History Previous Medical History?: Yes Hx Asthma: Yes - Social History Smoking Status: Unknown if ever smoked - Medications Home Medications: Home Medications Medication Instructions Recorded Confirmed Last Taken Type Peak Flow Meter [[place] 1 each MC DAILY #1 each 01/06/21 02/17/21 Unknown Rx Peak Flow Meter] Albuterol Mdi (or & Nicu Only) 2 puff IH QID PRN #1 inhalation 02/18/21 Unknown Rx [ProAir HFA Inhaler] Azithromycin [Zithromax TAB] 500 mg PO QDAY #3 tablet 02/18/21 Unknown Rx Cetirizine HCl [ZyrTEC 10mg cap] 10 mg PO DAILY #30 capsule 02/18/21 Unknown Rx Fluticasone [Flonase] 1 spray NS QDAY #1 bottle 02/18/21 Unknown Rx Ipratropium/Albuterol Sulfate 1 ampul IH TIDRT #30 ampul.neb 02/18/21 Unknown Rx [DUONEB *Not for PRN Use*] Montelukast [Singulair] 10 mg PO QPM #30 tablet 02/18/21 Unknown Rx Prednisone [predniSONE 10 mg 10 mg PO .TAPER #1 tab.ds.pk 02/18/21 Unknown Rx (6-Day Pack, 21 Tabs)] ALBUTEROL NEB's [Proventil 0.083% 2.5 mg IH TID PRN #10 neb 10/26/21 Unknown Rx NEBS] Albuterol Mdi (or & Nicu Only) 2 puff IH QID PRN #8.5 gram 10/26/21 Unknown Rx [ProAir HFA Inhaler] Benzonatate [Tessalon Perles] 100 mg PO Q8HR PRN #30 cap 10/26/21 Unknown Rx Prednisone [predniSONE 10 mg 10 mg PO .TAPER #1 pack 10/26/21 Unknown Rx (6-Day Pack, 21 Tabs)] guaiFENesin/CODEINE [Robitussin AC] 10 ml PO TID PRN #120 ml 10/26/21 Unknown Rx ED Physical Exam - General Limitations: No Limitations General appearance: alert, in no apparent distress - Head Head exam: Present: atraumatic, normocephalic - Eye Eye exam: Present: normal appearance. Absent: scleral icterus, conjunctival injection, periorbital swelling, periorbital tenderness - ENT ENT exam: Present: normal exam, normal orophraynx - Neck Neck exam: Present: normal inspection. Absent: tenderness - Respiratory Respiratory exam: Present: wheezes, chest wall tenderness, accessory muscle use. Absent: respiratory distress, rales, rhonchi, stridor - Cardiovascular Cardiovascular Exam: Present: regular rate, normal heart sounds - GI/Abdominal GI/Abdominal exam: Present: soft, normal bowel sounds. Absent: distended, tenderness, guarding, rebound, rigid - Extremities Exam Extremities exam: Present: normal inspection, normal capillary refill. Absent: pedal edema, joint swelling, calf tenderness - Back Exam Back exam: Present: normal inspection. Absent: CVA tenderness (R), CVA tenderness (L) - Neurological Exam Neurological exam: Present: alert, oriented X3, normal gait - Psychiatric Psychiatric exam: Present: normal affect, normal mood - Skin Skin exam: Present: warm, dry, intact, normal color ED Course Vital Signs 10/26/21 10/26/21 09:51 18:19 Temperature 98.3 F 98.1 F Pulse Rate 90 71 Respiratory 20 18 Rate Blood Pressure 160/100 144/91 [Left] O2 Sat by Pulse 99 96 Oximetry - Reevaluation(s) Reevaluation #1: 10/26/21 17:29 Wheezing mostly resolved. No accessory muscle usage noted. Patient able to talk in complete sentences. Patient states that he feels much better. ED Medical Decision Making - Radiology Data Radiology results: report reviewed, image reviewed CXR: FINDINGS: SUPPORT DEVICES: None. HEART / MEDIASTINUM: The heart size and pulmonary vasculature are normal. LUNGS / PLEURA: The lungs are mildly hyperinflated, but clear. No pneumothorax. ADDITIONAL FINDINGS: No significant additional findings. IMPRESSION: Hyperinflation of the lungs may be seen with asthma. No evidence of pneumonia. - Medical Decision Making 40-year-old black male with a past medical history of asthma presents to the emergency department for evaluation of 1 week history of worsening shortness of breath. He states that he ran out of his inhalers so he has not been able to treat his shortness of breath. He states that he has also had a persistent cough with wheezing and intermittent pain in his chest. He denies fever, weakness, and a decrease in appetite. Patient is much improved after medications and is able to speak in complete sentences and ambulate around room without any sob. Wheezes are mostly resolved. CXR without any acute abnormalities noted. Patient will be discharged with steroid dose pack, refill of albuterol inhaler and neb solution, and tessalone perles and Robitussin AC for cough. He is advised to follow up with his pcp or component inspector if worsening symptoms or return to ED as needed. He verbalized understanding of and agreement with plan of care. Critical care attestation.: If time is entered above; I have spent that time in minutes in the direct care of this critically ill patient, excluding procedure time. ED Disposition Clinical Impression: Asthma Qualifiers: Asthma severity: moderate Asthma persistence: persistent Asthma complication type: with acute exacerbation Qualified Code(s): J45.41 - Moderate persistent asthma with (acute) exacerbation Disposition: 01 HOME / SELF CARE / HOMELESS Is pt being admited?: No Does the pt Need Aspirin: No Condition: Stable Instructions: Asthma, Adult, [id number], Asthma Attack Prevention, Adult, Asthma (ED) Additional Instructions: Take medications as prescribed. Follow-up with your primary care provider or lung doctor for further evaluation and management. Return to the emergency department as needed. Prescriptions: Prednisone [predniSONE 10 mg (6-Day Pack, 21 Tabs)] 10 mg PO .TAPER #1 pack Albuterol Mdi (or & Nicu Only) [ProAir HFA Inhaler] 2 puff IH QID PRN #8.5 gram PRN Reason: Shortness Of Breath ALBUTEROL NEB's [Proventil 0.083% NEBS] 2.5 mg IH TID PRN #10 neb PRN Reason: Wheezing guaiFENesin/CODEINE [Robitussin AC] 10 ml PO TID PRN #120 ml PRN Reason: Cough Benzonatate [Tessalon Perles] 100 mg PO Q8HR PRN #30 cap PRN Reason: Cough Referrals: LYUDMILA JOSE MD [Staff Physician] - 3-5 Days ARNAUD QUICK MD [Staff Physician] - 3-5 Days Forms: Work/School Release Form(ED) Time of Disposition: 17:33
[2021-10-26] MEDS ORDERED: MAGNESIUM SULFATE 1 GM in SODIUM CHLORIDE 0.9% 50 ML IV ONE (14:00)
[2021-10-26] MEDS ORDERED: TERBUTALINE 1 MG/1 ML INJ SUB-Q ONE (15:36)
[2021-10-26 18:21] VITALS: BP 144/91
[2021-10-26] MEDS ORDERED: IPRATROPIUM/ALBUTEROL SULFATE 3 ML AMPUL.NEB IH SCH (20:00)
== END 2021-10-26 18:19 | disposition home or self-care (01) ==
LOC: ED 09:49
DX: J45.909 Unspecified asthma, uncomplicated (principal); Z98.890 Other specified postprocedural states; Z79.899 Other long term (current) drug therapy
CPT/HCPCS: 71046; 94640; 96365; 96372; 99284; J2930; J3105; J3475

== ENCOUNTER 2021-11-16 19:53 | Emergency (ER) | payer SELFPAY ==
[2021-11-16] MEDS ORDERED: SODIUM CHLORIDE 0.9% 1000 ML 1,000 ML IV ONE (21:00)
[2021-11-16] MEDS ORDERED: MAGNESIUM SULFATE 2 GM/50 ML BAG IV ONE (21:00)
[2021-11-16] MEDS ORDERED: methylPREDNISolone Sod Succinate 125 MG/2 ML INJ IV ONE (21:00)
[2021-11-16] MEDS ORDERED: ALBUTEROL 2.5 MG/3 ML NEBU IH ONE (21:00)
[2021-11-16] MEDS ORDERED: IPRATROPIUM 0.02% NEBU 2.5 ML IH ONE (21:00)
--- NOTE | 2021-11-16 21:10 | Emergency Department Report ---
ED Asthma HPI - General Chief Complaint: Chest Pain Stated Complaint: CHEST PAIN Time Seen by Provider: 11/16/21 20:55 Source: patient Mode of arrival: Ambulatory Limitations: No Limitations - History of Present Illness MD Complaint: "asthma attack", wheezing -: week(s) (2) Asthma History: childhood onset Severity: moderate Context: ran out of meds Associated Symptoms: none Treatments Prior to Arrival: other (non ran oujt of rx) - Related Data Current Asthma Therapy: inhaled bronchodilator Previous Rx's Medication Instructions Recorded Last Taken Type Peak Flow Meter [[place] 1 each MC DAILY #1 each 01/06/21 Unknown Rx Peak Flow Meter] Albuterol Mdi (or & Nicu Only) 2 puff IH QID PRN #1 inhalation 02/18/21 Unknown Rx [ProAir HFA Inhaler] Azithromycin [Zithromax TAB] 500 mg PO QDAY #3 tablet 02/18/21 Unknown Rx Cetirizine HCl [ZyrTEC 10mg cap] 10 mg PO DAILY #30 capsule 02/18/21 Unknown Rx Fluticasone [Flonase] 1 spray NS QDAY #1 bottle 02/18/21 Unknown Rx Ipratropium/Albuterol Sulfate 1 ampul IH TIDRT #30 ampul.neb 02/18/21 Unknown Rx [DUONEB *Not for PRN Use*] Montelukast [Singulair] 10 mg PO QPM #30 tablet 02/18/21 Unknown Rx Prednisone [predniSONE 10 mg 10 mg PO .TAPER #1 tab.ds.pk 02/18/21 Unknown Rx (6-Day Pack, 21 Tabs)] ALBUTEROL NEB's [Proventil 0.083% 2.5 mg IH TID PRN #10 neb 10/26/21 Unknown Rx NEBS] Albuterol Mdi (or & Nicu Only) 2 puff IH QID PRN #8.5 gram 10/26/21 Unknown Rx [ProAir HFA Inhaler] Benzonatate [Tessalon Perles] 100 mg PO Q8HR PRN #30 cap 10/26/21 Unknown Rx Prednisone [predniSONE 10 mg 10 mg PO .TAPER #1 pack 10/26/21 Unknown Rx (6-Day Pack, 21 Tabs)] guaiFENesin/CODEINE [Robitussin AC] 10 ml PO TID PRN #120 ml 10/26/21 Unknown Rx Allergies Allergy/AdvReac Type Severity Reaction Status Date / Time No Known Allergies Allergy Verified 10/26/21 09:54 ED Review of Systems ROS: Stated complaint: CHEST PAIN Other details as noted in HPI Comment: All other systems reviewed and negative ED Past Medical Hx - Past Medical History Hx Asthma: Yes - Social History Smoking Status: Unknown if ever smoked - Medications Home Medications: Home Medications Medication Instructions Recorded Confirmed Last Taken Type Peak Flow Meter [[place] 1 each MC DAILY #1 each 01/06/21 02/17/21 Unknown Rx Peak Flow Meter] Albuterol Mdi (or & Nicu Only) 2 puff IH QID PRN #1 inhalation 02/18/21 Unknown Rx [ProAir HFA Inhaler] Azithromycin [Zithromax TAB] 500 mg PO QDAY #3 tablet 02/18/21 Unknown Rx Cetirizine HCl [ZyrTEC 10mg cap] 10 mg PO DAILY #30 capsule 02/18/21 Unknown Rx Fluticasone [Flonase] 1 spray NS QDAY #1 bottle 02/18/21 Unknown Rx Ipratropium/Albuterol Sulfate 1 ampul IH TIDRT #30 ampul.neb 02/18/21 Unknown Rx [DUONEB *Not for PRN Use*] Montelukast [Singulair] 10 mg PO QPM #30 tablet 02/18/21 Unknown Rx Prednisone [predniSONE 10 mg 10 mg PO .TAPER #1 tab.ds.pk 02/18/21 Unknown Rx (6-Day Pack, 21 Tabs)] ALBUTEROL NEB's [Proventil 0.083% 2.5 mg IH TID PRN #10 neb 10/26/21 Unknown Rx NEBS] Albuterol Mdi (or & Nicu Only) 2 puff IH QID PRN #8.5 gram 10/26/21 Unknown Rx [ProAir HFA Inhaler] Benzonatate [Tessalon Perles] 100 mg PO Q8HR PRN #30 cap 10/26/21 Unknown Rx Prednisone [predniSONE 10 mg 10 mg PO .TAPER #1 pack 10/26/21 Unknown Rx (6-Day Pack, 21 Tabs)] guaiFENesin/CODEINE [Robitussin AC] 10 ml PO TID PRN #120 ml 10/26/21 Unknown Rx ED Physical Exam - General Limitations: No Limitations General appearance: alert, in no apparent distress - Head Head exam: Present: atraumatic, normocephalic - Eye Eye exam: Present: normal appearance, PERRL, EOMI Pupils: Present: normal accommodation - ENT ENT exam: Present: mucous membranes moist, normal external ear exam, other - Neck Neck exam: Present: normal inspection - Respiratory Respiratory exam: Present: normal lung sounds bilaterally. Absent: respiratory distress - Cardiovascular Cardiovascular Exam: Present: regular rate, normal rhythm. Absent: systolic murmur, diastolic murmur, rubs, gallop - GI/Abdominal GI/Abdominal exam: Present: soft, normal bowel sounds - Rectal Rectal exam: Present: deferred - Extremities Exam Extremities exam: Present: normal inspection - Back Exam Back exam: Present: normal inspection - Neurological Exam Neurological exam: Present: alert, oriented X3 - Psychiatric Psychiatric exam: Present: normal affect, normal mood - Skin Skin exam: Present: warm, dry, intact, normal color. Absent: rash ED Course Vital Signs 11/16/21 20:11 Pulse Rate 73 - Foreign Body Removal Ear Foreign Body Suspected: other (earing back lodged in to right earloab) If Insect Suspected: no insect seen Foreign Body Removed: yes Foreign Body Removal Technique: instrumentation Tympanic Membrane Intact: Yes Patient Tolerated Procedure: well Complications: none Critical care attestation.: If time is entered above; I have spent that time in minutes in the direct care of this critically ill patient, excluding procedure time. ED Disposition Disposition: 01 HOME / SELF CARE / HOMELESS Is pt being admited?: No Does the pt Need Aspirin: No Condition: Stable Referrals: [facility] [Provider Group] - 3-5 Days
--- NOTE | 2021-11-16 21:33 | XRay Report ---
CHEST 1 VIEW INDICATION / CLINICAL INFORMATION: Asthma. COMPARISON: 10/26/2021 FINDINGS: SUPPORT DEVICES: None. HEART / MEDIASTINUM: No significant abnormality. LUNGS / PLEURA: The lungs are mildly hyperinflated but otherwise clear. No acute superimposed pulmona ry or pleural process is noted. No pneumothorax. ADDITIONAL FINDINGS: No significant additional findings. IMPRESSION: 1. No acute findings. No interval change. Signer Name: Heaven Ross MD Signed: 11/16/2021 9:29 PM Workstation Name: [email or web address] [email or web address] [id number]
[2021-11-17 01:26] VITALS: BP 133/78
--- NOTE | 2021-11-17 14:44 | Electrocardiograph Report ---
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
== END 2021-11-17 05:17 | disposition home or self-care (01) ==
LOC: ED 19:53
DX: T16.1XXA Foreign body in right ear, initial encounter (principal); J45.909 Unspecified asthma, uncomplicated; Z79.899 Other long term (current) drug therapy; X58.XXXA Exposure to other specified factors, initial encounter; Y93.89 Activity, other specified; Y92.89 Other specified places as the place of occurrence of the external cause; Y99.8 Other external cause status
CPT/HCPCS: 69200; 71045; 93005; 94640; 96365; 96375; 99283; J2930; J3475; J7030

== ENCOUNTER 2021-11-21 00:22 | Emergency (ER) | payer SELFPAY ==
[2021-11-21] MEDS ORDERED: IPRATROPIUM/ALBUTEROL SULFATE 3 ML AMPUL.NEB IH ONE (08:48)
[2021-11-21] MEDS ORDERED: predniSONE 20 MG TAB PO ONE (08:48)
--- NOTE | 2021-11-21 08:50 | XRay Report ---
CHEST PA AND LATERAL VIEWS INDICATION: sob. COMPARISON: 11/16/2021 FINDINGS: Support devices: None. Heart: Within normal limits. Lungs/Pleura: No acute pulmonary or pleural findings. Lungs remain hyperinflated. IMPRESSION: 1. No acute findings. Signer Name: Walter Do MD Signed: 11/21/2021 8:45 AM Workstation Name: [email or web address]
--- NOTE | 2021-11-21 09:50 | Emergency Department Report ---
Minor Respiratory - HPI Chief Complaint: Adult Asthma Stated Complaint: DIFFICULTY BREATHING Time Seen by Provider: 11/21/21 08:48 Duration: 3 Days Pain Location: Chest Severity: mild Minor Respiratory: Yes Able to Tolerate Fluids, Yes Cough, No Rhinorrhea, No Sore Throat, No Ear Pain, No Sick Contacts, No Hemoptysis, No Chest Pain, No Shortness of Breath, No Fever Other History: 40 yo comes to ER with wheezing and sob. he is out of his asthma meds. no fever. no chills. no cp. no purulent sputum. ambulatory and nad on arrival to er ED Review of Systems ROS: Stated complaint: DIFFICULTY BREATHING Other details as noted in HPI Comment: All other systems reviewed and negative ED Past Medical Hx - Past Medical History Previous Medical History?: Yes Hx Asthma: Yes - Surgical History Past Surgical History?: No - Family History Family history: no significant - Social History Smoking Status: Current Every Day Smoker Substance Use Type: None - Medications Home Medications: Home Medications Medication Instructions Recorded Confirmed Last Taken Type Albuterol Mdi (or & Nicu Only) 2 puff IH QID PRN #1 inhalation 11/21/21 Unknown Rx [ProAir HFA Inhaler] Albuterol Mdi (or & Nicu Only) 2 puff IH QID PRN #8.5 gram 11/21/21 Unknown Rx [ProAir HFA Inhaler] Cetirizine HCl [ZyrTEC 10mg cap] 10 mg PO DAILY #30 capsule 11/21/21 Unknown Rx Fluticasone (Nf) [Flovent Hfa(Nf)] 2 puff IH BID #1 device 11/21/21 Unknown Rx Fluticasone [Flonase] 1 spray NS QDAY #1 bottle 11/21/21 Unknown Rx Ipratropium/Albuterol Sulfate 1 ampul IH TIDRT #30 ampul.neb 11/21/21 Unknown Rx [DUONEB *Not for PRN Use*] Montelukast [Singulair] 10 mg PO QPM #30 tablet 11/21/21 Unknown Rx predniSONE [Deltasone] 20 mg PO DAILY #5 tablet 11/21/21 Unknown Rx Minor Respiratory Exam - Exam General: Vital signs noted. No distress. Alert and acting appropriately. HEENT: Yes Moist Mucous Membranes, No Pharyngeal Erythema, No Pharyngeal Exudates, No Rhinorrhea, No Conjuctival Injection, No Frontal Tenderness, No Maxillary Tenderness Ear: Neither TM Bulge, Neither TM Erythema, Neither EAC Pain, Neither EAC Discharge Neck: Yes Supple, No Adenopathy Lungs: Yes Good Air Exchange, Yes Wheezes, No Ronchi, No Stridor, No Cough, No Labored Respirations, No Retractions, No Use of Accessory Muscles, No Other Abnormal Lung Sounds Heart: Yes Regular, No Murmur Abdomen: Yes Normal Bowel Sounds, No Tenderness, No Peritoneal Signs Skin: No Rash, No Edema Neurologic: Alert and oriented, no deficits. Musculoskeletal: Unremarkable. ED Course Vital Signs 11/21/21 11/21/21 00:27 09:30 Temperature 98 F Pulse Rate 90 Pulse Rate [ 86 Anterior Bilateral Throughout] Respiratory 16 Rate Respiratory 16 Rate [Anterior Bilateral Throughout] Blood Pressure 150/70 [Right] O2 Sat by Pulse 96 Oximetry ED Medical Decision Making - Radiology Data Radiology results: report reviewed, image reviewed NAP - Medical Decision Making DUONEB AND PRED IN ER Vital Signs 11/21/21 11/21/21 00:27 09:30 Temperature 98 F Pulse Rate 90 Pulse Rate [ 86 Anterior Bilateral Throughout] Respiratory 16 Rate Respiratory 16 Rate [Anterior Bilateral Throughout] Blood Pressure 150/70 [Right] O2 Sat by Pulse 96 Oximetry XRAY NAP dec wheezing with duoneb ambulatory with no sob on dc dc home with dc plan of care including diet, meds, activity and follow up. - Differential Diagnosis asthma ae Critical care attestation.: If time is entered above; I have spent that time in minutes in the direct care of this critically ill patient, excluding procedure time. ED Disposition Clinical Impression: Asthma Qualifiers: Asthma severity: mild Asthma persistence: intermittent Asthma complication type: uncomplicated Qualified Code(s): J45.20 - Mild intermittent asthma, uncomplicated Disposition: 01 HOME / SELF CARE / HOMELESS Is pt being admited?: No Does the pt Need Aspirin: No Condition: Stable Instructions: Asthma, Adult, Asthma (ED) Additional Instructions: MEDS ORDERED FOLLOW UP WITH PCP REFERRAL BELOW STAY WELL HYDRATED Prescriptions: predniSONE [Deltasone] 20 mg PO DAILY #5 tablet Fluticasone [Flonase] 1 spray NS QDAY #1 bottle Fluticasone (Nf) [Flovent Hfa(Nf)] 2 puff IH BID #1 device Albuterol Mdi (or & Nicu Only) [ProAir HFA Inhaler] 2 puff IH QID PRN #1 inhalation PRN Reason: Shortness Of Breath Albuterol Mdi (or & Nicu Only) [ProAir HFA Inhaler] 2 puff IH QID PRN #8.5 gram PRN Reason: Shortness Of Breath Montelukast [Singulair] 10 mg PO QPM #30 tablet Cetirizine HCl [ZyrTEC 10mg cap] 10 mg PO DAILY #30 capsule Ipratropium/Albuterol Sulfate [DUONEB *Not for PRN Use*] 1 ampul IH TIDRT #30 ampul.neb Referrals: LYUDMILA JOSE MD [Primary Care Provider] - 3-5 Days Forms: Work/School Release Form(ED) Time of Disposition: 09:52
[2021-11-21 10:37] VITALS: BP 123/77
== END 2021-11-21 10:37 | disposition home or self-care (01) ==
LOC: ED 00:22
DX: J45.909 Unspecified asthma, uncomplicated (principal); F17.200 Nicotine dependence, unspecified, uncomplicated; Z98.890 Other specified postprocedural states; Z79.899 Other long term (current) drug therapy
CPT/HCPCS: 71046; 94640; 94644; 99284

== ENCOUNTER 2021-12-30 04:57 | Emergency (ER) | payer SELFPAY ==
[2021-12-30] MEDS ORDERED: ALBUTEROL 2.5 MG/3 ML NEBU IH ONE (05:22)
[2021-12-30] MEDS ORDERED: IPRATROPIUM 0.02% NEBU 2.5 ML IH ONE (05:22)
[2021-12-30 06:05] LABS: Basophils % (Auto) 0.3 % (0.0-1.8); Eosinophils # (Auto) 0.2 K/mm3 (0.0-0.4); Hematocrit 43.7 % (35.5-45.6); Hemoglobin 14.8 gm/dl (11.8-15.2); Lymphocytes # (Auto) 1.7 K/mm3 (1.2-5.4); Lymphocytes % (Auto) 15.9 % (13.4-35.0); Mean Corpuscular HGB Conc 34 % (32-34); Mean Corpuscular Volume 91 fl (84-94); Monocytes # (Auto) 0.6 K/mm3 (0.0-0.8); Monocytes % (Auto) 5.7 % (0.0-7.3); Platelet Count 238 K/mm3 (140-440); Red Cell Distribution Width 16.7 % (13.2-15.2)
--- NOTE | 2021-12-30 06:07 | XRay Report ---
CHEST 1 VIEW 12/30/2021 4:51 AM INDICATION / CLINICAL INFORMATION: Dyspnea. COMPARISON: 11/21/2021 FINDINGS: SUPPORT DEVICES: None. HEART / MEDIASTINUM: No significant abnormality. LUNGS / PLEURA: No significant pulmonary or pleural abnormality. No pneumothorax. ADDITIONAL FINDINGS: None IMPRESSION: 1. No acute chest process. Signer Name: Colin Pringle MD Signed: 12/30/2021 6:03 AM Workstation Name: [email or web address]
[2021-12-30] MEDS ORDERED: SODIUM CHLORIDE 0.9% 1000 ML 1,000 ML IV ONE (06:21)
[2021-12-30] MEDS ORDERED: methylPREDNISolone Sod Succinate 125 MG/2 ML INJ IV ONE (06:21)
[2021-12-30 06:31] LABS: Alanine Aminotransferase 17 units/L (7-56); Albumin 4.2 g/dL (3.9-5); BUN/Creatinine Ratio 7; Blood Urea Nitrogen 8 mg/dL (9-20); Hemolysis Index 7
[2021-12-30 08:04] LABS: Creatine Kinase MB 3.5 ng/mL (0.0-4.0)
--- NOTE | 2021-12-30 08:12 | Emergency Department Report ---
ED Shortness of Breath HPI - General Chief Complaint: Dyspnea/Respdistress Stated Complaint: SOB Time Seen by Provider: 12/30/21 05:22 Source: EMS Mode of arrival: Stretcher Limitations: No Limitations - History of Present Illness Initial Comments: shortness of breath, EMS went out on pt earlier gave pt albuterol 5 mg pt was doing better, decided to stay home approx 20 min after EMS left, pt called EMS back for shortness of breath, EMS states pt has wheezing bilaterally apex to base, gave albuterol 2.5 mg, solu-medrol 125mg, Mag 2g - pt improved to 95% on 4L NC from 88%RA Complaint: shortness of breath, "asthma attack" -: Gradual, hour(s) Improves With: oxygen, rest, bronchodilators Worsens With: exertion Known History Of: asthma Associated Symptoms: denies other symptoms Treatments Prior to Arrival: oxygen, bronchodilator - Related Data Home Oxygen Therapy: No Previous Rx's Medication Instructions Recorded Last Taken Type Albuterol Mdi (or & Nicu Only) 2 puff IH QID PRN #1 inhalation 11/21/21 Unknown Rx [ProAir HFA Inhaler] Albuterol Mdi (or & Nicu Only) 2 puff IH QID PRN #8.5 gram 11/21/21 Unknown Rx [ProAir HFA Inhaler] Cetirizine HCl [ZyrTEC 10mg cap] 10 mg PO DAILY #30 capsule 11/21/21 Unknown Rx Fluticasone (Nf) [Flovent Hfa(Nf)] 2 puff IH BID #1 device 11/21/21 Unknown Rx Fluticasone [Flonase] 1 spray NS QDAY #1 bottle 11/21/21 Unknown Rx Ipratropium/Albuterol Sulfate 1 ampul IH TIDRT #30 ampul.neb 11/21/21 Unknown Rx [DUONEB *Not for PRN Use*] Montelukast [Singulair] 10 mg PO QPM #30 tablet 11/21/21 Unknown Rx predniSONE [Deltasone] 20 mg PO DAILY #5 tablet 11/21/21 Unknown Rx Allergies Allergy/AdvReac Type Severity Reaction Status Date / Time No Known Allergies Allergy Verified 10/26/21 09:54 ED Review of Systems ROS: Stated complaint: SOB Other details as noted in HPI Constitutional: denies: chills, fever Eyes: denies: eye pain, eye discharge, vision change ENT: denies: ear pain, throat pain Respiratory: denies: cough, shortness of breath, wheezing Cardiovascular: denies: chest pain, palpitations Endocrine: no symptoms reported Gastrointestinal: denies: abdominal pain, nausea, diarrhea Genitourinary: denies: urgency, dysuria Musculoskeletal: denies: back pain, joint swelling, arthralgia Skin: denies: rash, lesions Neurological: denies: headache, weakness, paresthesias Psychiatric: denies: anxiety, depression Hematological/Lymphatic: denies: easy bleeding, easy bruising ED Past Medical Hx - Past Medical History Previous Medical History?: Yes Hx Asthma: Yes (pt has been intubated previously) - Surgical History Past Surgical History?: No - Social History Smoking Status: Unknown if ever smoked Substance Use Type: None - Medications Home Medications: Home Medications Medication Instructions Recorded Confirmed Last Taken Type Albuterol Mdi (or & Nicu Only) 2 puff IH QID PRN #1 inhalation 11/21/21 Unknown Rx [ProAir HFA Inhaler] Albuterol Mdi (or & Nicu Only) 2 puff IH QID PRN #8.5 gram 11/21/21 Unknown Rx [ProAir HFA Inhaler] Cetirizine HCl [ZyrTEC 10mg cap] 10 mg PO DAILY #30 capsule 11/21/21 Unknown Rx Fluticasone (Nf) [Flovent Hfa(Nf)] 2 puff IH BID #1 device 11/21/21 Unknown Rx Fluticasone [Flonase] 1 spray NS QDAY #1 bottle 11/21/21 Unknown Rx Ipratropium/Albuterol Sulfate 1 ampul IH TIDRT #30 ampul.neb 11/21/21 Unknown Rx [DUONEB *Not for PRN Use*] Montelukast [Singulair] 10 mg PO QPM #30 tablet 11/21/21 Unknown Rx predniSONE [Deltasone] 20 mg PO DAILY #5 tablet 11/21/21 Unknown Rx ED Physical Exam - General Limitations: No Limitations General appearance: alert, in no apparent distress - Head Head exam: Present: atraumatic, normocephalic - Eye Eye exam: Present: normal appearance - ENT ENT exam: Present: mucous membranes moist - Neck Neck exam: Present: normal inspection - Respiratory Respiratory exam: Present: normal lung sounds bilaterally, wheezes. Absent: respiratory distress - Cardiovascular Cardiovascular Exam: Present: regular rate, normal rhythm. Absent: systolic murmur, diastolic murmur, rubs, gallop - GI/Abdominal GI/Abdominal exam: Present: soft, normal bowel sounds - Rectal Rectal exam: Present: deferred - Extremities Exam Extremities exam: Present: normal inspection - Back Exam Back exam: Present: normal inspection - Neurological Exam Neurological exam: Present: alert, oriented X3 - Psychiatric Psychiatric exam: Present: normal affect, normal mood - Skin Skin exam: Present: warm, dry, intact, normal color. Absent: rash ED Course Vital Signs 12/30/21 12/30/21 12/30/21 04:58 05:28 05:30 Temperature 98.9 F Pulse Rate 106 H Pulse Rate [ Bilateral Throughout] Respiratory 18 20 Rate Respiratory Rate [Bilateral Throughout] Blood Pressure 150/105 143/80 O2 Sat by Pulse 95 98 98 Oximetry 12/30/21 12/30/21 12/30/21 05:46 06:00 06:30 Temperature Pulse Rate Pulse Rate [ 85 Bilateral Throughout] Respiratory Rate Respiratory 20 Rate [Bilateral Throughout] Blood Pressure 143/80 143/80 O2 Sat by Pulse 96 93 Oximetry ED Medical Decision Making - Lab Data Result diagrams: 12/30/21 05:50 12/30/21 05:50 - EKG Data -: EKG Interpreted by Ga EKG shows normal: sinus rhythm Rate: normal - EKG Data Interpretation: nonspecific ST-T wave annette - Radiology Data Radiology results: report reviewed, image reviewed - Medical Decision Making work up negative rt given and steriods Critical care attestation.: If time is entered above; I have spent that time in minutes in the direct care of this critically ill patient, excluding procedure time. ED Disposition Clinical Impression: Asthma, Asthma exacerbation Disposition: 01 HOME / SELF CARE / HOMELESS Is pt being admited?: No Does the pt Need Aspirin: No Condition: Stable Instructions: Asthma (ED), Asthma, Adult
[2021-12-30 08:20] VITALS: BP 123/66
== END 2021-12-30 08:35 | disposition home or self-care (01) ==
LOC: ED 04:57
DX: J45.901 Unspecified asthma with (acute) exacerbation (principal); Z79.899 Other long term (current) drug therapy
CPT/HCPCS: 36415; 71045; 80053; 82550; 82553; 83735; 83880; 84484; 85025; 93005; 94640; 96361; 96374; 99284; J2930; 94644